=== PATIENT | female | born 1955 | race African-American/Black ===

== ENCOUNTER 2019-02-06 17:12 | Inpatient (IN) | payer OTHER ==
[2019-02-06 22:50] VITALS: BMI 38.3
--- NOTE | 2019-02-07 01:20 | HP ---
COWS - Scale Resting Pulse: 0= [place] 80 or Below Sweatin=Flushed/Facial Moisture Restless Observation: 1= Difficult to Sit Still Pupil Size: 2= Moderately Dilated (Pupils = 3 mm) Bone or Joint Aches: 1= Mild Discomfort Runny Nose/ Eye Tearin= Runny Nose/Eyes GI Upset > 30mins: 1= Stomach Cramp Tremor Observation: 2= Slight Tremor Visible Yawning Observation: 1= 1-2x During Session Anxiety or Irritability: 1=Feels Anxious/Irritable Goose Flesh Skin: 0=Smooth Skin COWS Score: 13 CIWA Score - Admission Criteria OASAS Guidelines: Admission for Medically Managed Detox: Requires at least one of the followin. CIWA greater than 12 2. Seizures within the past 24 hours 3. Delirium tremens within the past 24 hours 4. Hallucinations within the past 24 hours 5. Acute intervention needed for co occurring medical disorder 6. Acute intervention needed for co occurring psychiatric disorder 7. Severe withdrawal that cannot be handled at a lower level of care (continued vomiting, continued diarrhea, abnormal vital signs) requiring intravenous medication and/or fluids 8. Admission ROS [facility] Chief Complaint: Having heroin withdrawal Allergies/Adverse Reactions: Allergies Allergy/AdvReac Type Severity Reaction Status Date / Time No Known Allergies Allergy Verified 02/06/19 22:28 History of Present Illness: 63 yo presents w/ heroin withdrawal symptoms seeking detox. Utox:+ ABRAM/FEN/MOP/OXY/MTD SOLO: 0.0 Heroin use started at age 19. Alcohol use started at age 14. Cocaine use started at age 32. Nicotine use began at age 14. Smokes 1/2 PPD. Illicit methadone use approx 90 mg - last used 1/2 this am. Also used heroin this am prior to coming in to [facility]. Was on Suboxone from 2012 to 10/2018 - [facility] - [address] in [place]. Relapsed w/heroin in October 2018. Longest length of sobriety 18 years from age 33 to 51. Denies seizures. Hx 3 overdoses. Last 10 years ago. PMHx: Asthma, HTN, Osteoarthritis; LBP; MHHx: Depression. Anxiety. Insomnia. Last took Wellbutrin over a month ago. Has a MH Provider. Denies thoughts of harming self or others. SHx: Domiciled. Unemployed. (SSD); Denies legal issues Patient Name: Audra Kelly Date: 1955 Address: [address] [place] [address] Sex: Female Rx Written Rx Dispensed Drug Quantity Days Supply Prescriber Name 10/19/2018 10/19/2018 suboxone 8 mg-2 mg sl film 60 30 OsvaldoDarío lozano MD 09/19/2018 09/19/2018 suboxone 8 mg-2 mg sl film 60 30 Osvaldo, Darío SULLIVAN 08/22/2018 08/22/2018 suboxone 8 mg-2 mg sl film 60 30 Osvaldo, Darío SULLIVAN 07/25/2018 07/25/2018 suboxone 8 mg-2 mg sl film 60 30 [facility], Darío SULLIVAN 06/26/2018 06/26/2018 suboxone 4 mg-1 mg sl film 30 30 [facility], Darío SULLIVAN 06/26/2018 06/26/2018 suboxone 8 mg-2 mg sl film 60 30 [facility], Darío SULLIVAN 05/25/2018 05/25/2018 suboxone 8 mg-2 mg sl film 90 30 Osvaldo, Darío SULLIVAN 04/27/2018 04/27/2018 suboxone 8 mg-2 mg sl film 90 90 OsvaldoDarío velasquez MD 03/21/2018 03/21/2018 suboxone 8 mg-2 mg sl film 90 30 Darío Riley MD Patient Name: Audra Kelly Date: 1955 Address: [address] [place] [address] Sex: Female Rx Written Rx Dispensed Drug Quantity Days Supply Prescriber Name 02/19/2018 02/19/2018 suboxone 8 mg-2 mg sl film 90 30 Darío Riley MD Exam Limitations: No Limitations - Ebola screening Have you traveled outside of the country in the last 21 days: No (N) Have you had contact with anyone from an Ebola affected area: No Have you been sick,other than usual withdrawal symptoms: No Do you have a fever: No - Review of Systems Constitutional: Chills, Diaphoresis, Changes in sleep (Difficulty staying asleep ) EENT: reports: Blurred Vision, Hearing Loss (Decreased hearing (L) ear), Nose Congestion Respiratory: reports: Cough, SOB with Exertion (Walking) Cardiac: reports: No Symptoms Reported GI: reports: Abdominal cramping : reports: No Symptoms Reported Musculoskeletal: reports: Back Pain (Chronic avery back back burning/throbbing pain), Joint Pain (Both knees w/ throbbing pain increases w/ walking. Has a walker. States electric wheelchair at home.) Integumentary: reports: No Symptoms Reported Neuro: reports: Numbness (Fingers both hands. Sometimes in feet.), Tremors, Unsteady Gait Endocrine: reports: Increased Thirst Hematology: reports: No Symptoms Reported Psychiatric: reports: Judgement Intact, Orientated x3, Agitated, Anxious, Depressed (Denies thoughts of harming self or others.) Patient History - PPD History Previous Implant?: Yes Documented Results: Positive w/o proof (States rx'd w/ [facility] in 1990) Implanted On Prior R Admission?: No PPD to be Administered?: No - Smoking Cessation Smoking history: Current every day smoker Have you smoked in the past 12 months: Yes Aproximately how many cigarettes per day: 10 Hx Chewing Tobacco Use: No Initiated information on smoking cessation: Yes 'Breaking Loose' booklet given: 02/07/19 - Substance & Tx. History Hx Alcohol Use: Yes (Small amounts) Hx Substance Use: Yes Substance Use Type: Cocaine, Heroin, Opiates Hx Substance Use Treatment: Yes (detox, rehab, past OTP-received Suboxone) - Substances abused Heroin Substance route: Inhalation Frequency: Daily Amount used: 4 to 6 bags Age of first use: 19 Date of last use: 02/06/19 Cocaine Substance route: Inhalation Frequency: 3-6 times per week Amount used: 20 to 40 dollars Age of first use: 32 Date of last use: 02/05/19 Alcohol Substance route: Oral Frequency: 1-3 times last 30 days Amount used: 12 ounce of beer, little glass of wine Age of first use: 14 Date of last use: 02/05/19 Admission Physical Exam BHS - Vital Signs Vital Signs: Vital Signs - 24 hr 02/06/19 22:26 Temperature 97.2 F L Pulse Rate 71 Respiratory 16 Rate Blood Pressure 150/97 - Physical General Appearance: Yes: Nourished, Mild Distress, Obese, Tremorous, Sweating ( Increased facial moisture), Anxious HEENTM: Yes: EOMI, Hearing grossly Normal, Normocephalic, Normal Voice, FELY ( Pupils = 3 mm), Pharynx Normal Respiratory: Yes: Lungs Clear (Pulse Ox 98 %), Normal Breath Sounds, No Respiratory Distress Neck: Yes: No masses,lesions,Nodules, Supple Breast: Yes: Breast Exam Deferred Cardiology: Yes: Regular Rhythm, Regular Rate, S1, S2 Abdominal: Yes: Non Tender, Soft, Increased Bowel Sounds, Protuberent ( Increased abdominal adiposity) Genitourinary: Yes: Within Normal Limits Back: Yes: Normal Inspection Musculoskeletal: Yes: full range of Motion Extremities: Yes: Normal Capillary Refill, Tremors, Pedal Edema (Both feet and hands. Radial and pedal pulses +; Cap refill < 3 sec) Neurological: Yes: computer numerical control programmer II-XII NML intact, Fully Oriented, Alert, Motor Strength 5/5, Normal Mood/Affect Integumentary: Yes: Normal Color, Warm, Diaphoresis (Increased facial moisture) Lymphatic: Yes: Within Normal Limits - Diagnostic (1) Opioid dependence with withdrawal Current Visit: Yes Status: Acute (2) Nicotine dependence, unspecified, uncomplicated Current Visit: Yes Status: Chronic Qualifiers: Nicotine product type: cigarettes Qualified Code(s): F17.210 - Nicotine dependence, cigarettes, uncomplicated (3) History of asthma Current Visit: Yes Status: Acute (4) History of osteoarthritis Current Visit: Yes Status: Chronic (5) History of low back pain Current Visit: Yes Status: Chronic (6) Cocaine dependence, uncomplicated Current Visit: Yes Status: Chronic (7) Obesity (BMI 30-39.9) Current Visit: Yes Status: Acute (8) History of positive PPD Current Visit: Yes Status: Chronic (9) Essential (primary) hypertension Current Visit: Yes Status: Chronic Cleared for Admission [facility] - Detox or Rehab [facility] Level of Care: Medically Managed Detox Regimen/Protocol: Methadone Claeared for Rehab Admission: No Breathalyzer - Breathalyzer Breathalyzer: 0 Urine Drug Screen - Test Device Lot number: [id number] Expiration date: 10/05/20 - Control Is test valid?: Yes - Results Drug screen NEGATIVE: No Urine drug screen results: ABRAM-Cocaine, FEN-Fentanyl, MOP-Opiates, OXY-Oxycodone , MTD-Methadone Inpatient Rehab Admission - Rehab Decision to Admit Inpatient rehab admission?: No
[2019-02-07] MEDS ORDERED: MENTHOL/PHENOL 1 EACH UD MM PRN (02:16)
[2019-02-07] MEDS ORDERED: BISMUTH SUBSALICYLATE 524 MG/30 ML UD PO PRN (02:16)
[2019-02-07] MEDS ORDERED: MAG HYDROX/AL HYDROX/SIMETH 30 ML UNIT-DOSE CUP PO PRN (02:16)
[2019-02-07] MEDS ORDERED: cloNIDine HCL 0.1 MG TABLET PO PRN (02:16)
[2019-02-07] MEDS ORDERED: MELATONIN 5 MG TABLETS PO PRN (02:16)
[2019-02-07] MEDS ORDERED: MAGNESIUM CITRATE 300 ML BOTTLE PO PRN (02:16)
[2019-02-07] MEDS ORDERED: hydrOXYzine PAMOATE 25 MG CAPSULE (FP) PO PRN (02:16)
[2019-02-07] MEDS ORDERED: ACETAMINOPHEN 325 MG TABLET (FP) PO PRN ×2 (02:16)
[2019-02-07] MEDS ORDERED: MAGNESIUM HYDROX 2400MG/30ML ORAL SUSPENSION 30 ML CUP PO PRN (02:16)
[2019-02-07] MEDS ORDERED: METHADONE HCL 10 MG TABLET PO ONE ×2 (02:21→10:00)
[2019-02-07] MEDS: clonazePAM 0.5 MG TABLET PO PRN ×3 (03:53→19:56)
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
[2019-02-07] MEDS: PRENATAL VITAMINS W/ FOLIC ACID TABLET (FP) PO SCH (10:21)
[2019-02-07] MEDS: HYDROCHLOROTHIAZIDE 25 MG TABLET (FP) PO SCH (10:21)
[2019-02-07] MEDS: amLODIPine BESYLATE 10 MG TABLET (FP) PO SCH (10:21)
[2019-02-07] MEDS ORDERED: METHADONE HCL 5 MG TABLET ONE (10:46)
[2019-02-07] MEDS: NICOTINE 14 MG/24 HOURS TOPICAL PATCH TD SCH (11:00)
[2019-02-07] MEDS: buPROPion HCL 75 MG TABLET PO SCH (12:00)
--- NOTE | 2019-02-07 13:11 | PN ---
BHS COWS - Scale Resting Pulse: 0= [place] 80 or Below Sweatin= Chills/Flushing Restless Observation: 1= Difficult to Sit Still Pupil Size: 0= Normal to Room Light Bone or Joint Aches: 2= Severe Diffuse Aches Runny Nose/ Eye Tearin= Runny Nose/Eyes GI Upset > 30mins: 2= Nausea/Diarrhea Tremor Observation of Outstretched Hands: 1= Tremor [place], Not Seen Yawning Observation: 1= 1-2x During Session Anxiety or Irritability: 2=Irritable/Anxious Goose Flesh Skin: 0=Smooth Skin COWS Score: 12 S Progress Note (SOAP) Subjective: c/o of generalized body aches, back pian, interrupted sleep,, chills, sweats Objective: 02/07/19 13:08 Vital Signs Temperature 98.2 F 02/07/19 09:32 Pulse Rate 73 02/07/19 09:32 Respiratory Rate 20 02/07/19 09:32 Blood Pressure 155/94 02/07/19 09:32 O2 Sat by Pulse Oximetry (%) labs pending Assessment: 02/07/19 13:09 Aox3 no acute distress no adventitious breath sounds full ROM ambulating in the unit with rollator withdrawal sx Plan: increase po fluids labs pending continue detox
--- NOTE | 2019-02-07 14:36 | EKG ---
Test Reason : Blood Pressure : / mmHG Vent. Rate : 076 BPM Atrial Rate : 076 BPM P-R Int : 202 ms QRS Dur : 100 ms QT Int : 396 ms P-R-T Axes : -88 029 054 degrees QTc Int : 445 ms UNUSUAL P AXIS, POSSIBLE ECTOPIC ATRIAL RHYTHM NONSPECIFIC T WAVE ABNORMALITY ABNORMAL ECG WHEN COMPARED WITH ECG OF 24-APR-2009 16:19, ECTOPIC ATRIAL RHYTHM HAS REPLACED SINUS RHYTHM NONSPECIFIC T WAVE ABNORMALITY NOW EVIDENT IN INFERIOR LEADS Confirmed by YOLANDA MORAES MD ([id number]) on 02/07/2019 2:36:15 PM Referred By: Confirmed By:YOLANDA MORAES MD
[2019-02-07] MEDS: NICOTINE POLACRILEX 2 MG GUM BUC PRN (14:51)
[2019-02-07] MEDS: THIAMINE HCL 100 MG TABLET (FP) PO SCH (23:53)
[2019-02-08] MEDS ORDERED: METHADONE (DETOX) 20 MG, METHADONE (DETOX) 5 MG PO ONE (06:00)
[2019-02-08] MEDS: clonazePAM 0.5 MG TABLET PO PRN ×2 (06:11→19:45)
[2019-02-08] MEDS ORDERED: METHADONE HCL 10 MG TABLET (FOR DETOX USE ONLY) ONE (06:11)
[2019-02-08] MEDS ORDERED: METHADONE HCL 5 MG TABLET (FOR DETOX USE ONLY) ONE (06:12)
[2019-02-08] MEDS: buPROPion HCL 75 MG TABLET PO SCH (10:23)
[2019-02-08] MEDS: PRENATAL VITAMINS W/ FOLIC ACID TABLET (FP) PO SCH (10:23)
[2019-02-08] MEDS: amLODIPine BESYLATE 10 MG TABLET (FP) PO SCH (10:23)
[2019-02-08] MEDS: HYDROCHLOROTHIAZIDE 25 MG TABLET (FP) PO SCH (10:23)
[2019-02-08] MEDS: NICOTINE 14 MG/24 HOURS TOPICAL PATCH TD SCH (10:24)
[2019-02-08] MEDS: NICOTINE POLACRILEX 2 MG GUM BUC PRN (10:27)
[2019-02-08] MEDS: LIDOCAINE 5% TOPICAL PATCH TP SCH (10:38)
--- NOTE | 2019-02-08 13:47 | PN ---
BHS COWS - Scale Resting Pulse: 1= [place] 81-100 Sweatin= Chills/Flushing Restless Observation: 0= Sits Still Pupil Size: 0= Normal to Room Light Bone or Joint Aches: 2= Severe Diffuse Aches Runny Nose/ Eye Tearin= None GI Upset > 30mins: 1= Stomach Cramp Tremor Observation of Outstretched Hands: 0= None Yawning Observation: 0= None Anxiety or Irritability: 2=Irritable/Anxious Goose Flesh Skin: 0=Smooth Skin COWS Score: 7 BHS Progress Note (SOAP) Subjective: Patient states feeling better from yesterday. Still c/o mild abdominal cramps, nausea, body aches, anxiety and interrupted sleep. 02/08/19 13:43 Objective: Vital Signs Temperature 97.8 F 02/08/19 13:04 Pulse Rate 100 H 02/08/19 13:04 Respiratory Rate 18 02/08/19 13:04 Blood Pressure 124/72 02/08/19 13:04 O2 Sat by Pulse Oximetry (%) Laboratory Tests 02/08/19 02/08/19 08:00 08:00 Corrected WBC (auto) Taker Down MCV Taker Down MCH Taker Down MCHC Taker Down RDW Taker Down MPV Taker Down Manual Slide Review Taker Down Platelet Comment Taker Down RPR Titer Nonreactive PE alert and oriented x 3 skin warm and dry neck neg for jvd + ls spine tenderness ext no visible tremors +walker mildly anxious Assessment: 02/08/19 13:47 opiod withdrawal symptoms Plan: continue detox add lidocaine patch encourage fluids cbc clotted repeat in am monitor clinically
[2019-02-08] MEDS: LIDOCAINE PATCH REMOVAL MC SCH (22:30)
[2019-02-08] MEDS: THIAMINE HCL 100 MG TABLET (FP) PO SCH (22:30)
[2019-02-09] MEDS: clonazePAM 0.5 MG TABLET PO PRN ×2 (05:32→17:31)
[2019-02-09] MEDS ORDERED: METHADONE HCL 10 MG TABLET (FOR DETOX USE ONLY) PO ONE (06:00)
[2019-02-09] MEDS: amLODIPine BESYLATE 10 MG TABLET (FP) PO SCH (10:16)
[2019-02-09] MEDS: HYDROCHLOROTHIAZIDE 25 MG TABLET (FP) PO SCH (10:16)
[2019-02-09] MEDS: PRENATAL VITAMINS W/ FOLIC ACID TABLET (FP) PO SCH (10:16)
[2019-02-09] MEDS: buPROPion HCL 75 MG TABLET PO SCH (10:16)
[2019-02-09] MEDS: NICOTINE 14 MG/24 HOURS TOPICAL PATCH TD SCH (10:17)
[2019-02-09] MEDS: LIDOCAINE 5% TOPICAL PATCH TP SCH (10:18)
[2019-02-09] MEDS: NICOTINE POLACRILEX 2 MG GUM BUC PRN (10:18)
[2019-02-09] MEDS: METHOCARBAMOL 500 MG TABLET PO PRN ×2 (10:21→17:31)
[2019-02-09] MEDS: IBUPROFEN 400 MG TABLET (FP) PO PRN ×2 (10:21→17:31)
[2019-02-09 11:32] LABS: ALBUMIN 3.5 g/dl (3.4-5.0); BILIRUBIN,TOTAL 0.5 mg/dL (0.2-1); BLOOD UREA NITROGEN 12.5 mg/dL (7-18); CALCIUM 8.9 mg/dL (8.5-10.1); CREATININE 0.8 mg/dL (0.55-1.3); POTASSIUM 4.7 mmol/L (3.5-5.1); TOT PROT 6.9 g/dl (6.4-8.2)
--- NOTE | 2019-02-09 12:13 | PN ---
BHS COWS - Scale Resting Pulse: 1= [place] 81-100 Sweatin= Chills/Flushing Restless Observation: 1= Difficult to Sit Still Pupil Size: 0= Normal to Room Light Bone or Joint Aches: 1= Mild Discomfort Runny Nose/ Eye Tearin= None GI Upset > 30mins: 0= None Tremor Observation of Outstretched Hands: 0= None Yawning Observation: 1= 1-2x During Session Anxiety or Irritability: 2=Irritable/Anxious Goose Flesh Skin: 0=Smooth Skin COWS Score: 7 BHS Progress Note (SOAP) Subjective: c/o anxiety, irritability, headache, sweats, and lower back pain. Objective: 02/09/19 12:10 Vital Signs 02/09/19 02/09/19 06:00 09:35 Temperature 97.7 F 98.4 F Pulse Rate 72 113 H Respiratory 18 18 Rate Blood Pressure 129/68 155/98 Lab Results WBC Cancelled 02/08/19 08:00 RBC Cancelled 02/08/19 08:00 Hgb Cancelled 02/08/19 08:00 Hct Cancelled 02/08/19 08:00 MCV Manager Medical Affairs 02/08/19 08:00 MCHC Manager Medical Affairs 02/08/19 08:00 RDW Manager Medical Affairs 02/08/19 08:00 Plt Count Cancelled 02/08/19 08:00 Sodium 139 mmol/L (136-145) 02/09/19 08:10 Potassium 4.7 mmol/L (3.5-5.1) 02/09/19 08:10 Chloride 103 mmol/L (98-107) 02/09/19 08:10 Carbon Dioxide 30 mmol/L (21-32) 02/09/19 08:10 Anion Gap 6 MMOL/L (8-16) L 02/09/19 08:10 BUN 12.5 mg/dL (7-18) 02/09/19 08:10 Creatinine 0.8 mg/dL (0.55-1.3) 02/09/19 08:10 Random Glucose 83 mg/dL (74-106) 02/09/19 08:10 Calcium 8.9 mg/dL (8.5-10.1) 02/09/19 08:10 Labs noted. Assessment: 02/09/19 12:11 AOX3, in no acute respiratory distress. Full ROM, ambulating in the unit with a rolling walker. Withdrawal symptoms. c/o lower back pain. Plan: continue detox. continue with lidoderm patch.
[2019-02-09 13:47] LABS: BASO % 0.8 % (0-2.0); EOS % 5.8 % (0-4.5); HEMATOCRIT 39.4 % (32.4-45.2); HEMOGLOBIN 12.9 GM/dL (10.7-15.3); LYMPH % 27.2 % (8-40); MCHC 32.8 g/dl (32.0-36.0); MEAN CELL VOLUME 79.3 fl (80-96); MEAN PLT VOLUME 9.2 fl (7.5-11.1); MONO % 8.5 % (3.8-10.2); NEUT % 57.7 % (42.8-82.8); PLATELET COUNT 289 K/MM3 (134-434); RBC 4.98 M/mm3 (3.60-5.2); RDW 16.2 % (11.6-15.6); WHITE BLOOD COUNT 4.9 K/mm3 (4.0-10.0)
[2019-02-09] MEDS: LIDOCAINE PATCH REMOVAL MC SCH (22:38)
[2019-02-09] MEDS: THIAMINE HCL 100 MG TABLET (FP) PO SCH (22:38)
[2019-02-10] MEDS ORDERED: METHADONE HCL 10 MG TABLET (FOR DETOX USE ONLY) ONE (05:06)
[2019-02-10] MEDS ORDERED: METHADONE HCL 5 MG TABLET (FOR DETOX USE ONLY) ONE (05:06)
[2019-02-10] MEDS: METHOCARBAMOL 500 MG TABLET PO PRN ×2 (05:10→22:36)
[2019-02-10] MEDS: IBUPROFEN 400 MG TABLET (FP) PO PRN ×2 (05:10→22:37)
[2019-02-10] MEDS ORDERED: METHADONE (DETOX) 10 MG, METHADONE (DETOX) 5 MG PO ONE (06:00)
[2019-02-10] MEDS: PRENATAL VITAMINS W/ FOLIC ACID TABLET (FP) PO SCH (10:26)
[2019-02-10] MEDS: HYDROCHLOROTHIAZIDE 25 MG TABLET (FP) PO SCH (10:26)
[2019-02-10] MEDS: amLODIPine BESYLATE 10 MG TABLET (FP) PO SCH (10:26)
[2019-02-10] MEDS: buPROPion HCL 75 MG TABLET PO SCH (10:26)
[2019-02-10] MEDS: LIDOCAINE 5% TOPICAL PATCH TP SCH (10:27)
[2019-02-10] MEDS: NICOTINE 14 MG/24 HOURS TOPICAL PATCH TD SCH (10:27)
[2019-02-10] MEDS: clonazePAM 0.5 MG TABLET PO PRN ×2 (10:29→22:36)
[2019-02-10] MEDS: NICOTINE POLACRILEX 2 MG GUM BUC PRN (10:31)
--- NOTE | 2019-02-10 15:52 | PN ---
BHS COWS - Scale Resting Pulse: 1= [place] 81-100 Sweatin= Chills/Flushing Restless Observation: 0= Sits Still Pupil Size: 0= Normal to Room Light Bone or Joint Aches: 1= Mild Discomfort Runny Nose/ Eye Tearin= Nasal Congestion GI Upset > 30mins: 0= None Tremor Observation of Outstretched Hands: 2= Slight Tremor Visible Yawning Observation: 1= 1-2x During Session Anxiety or Irritability: 1=Feels Anxious/Irritable Goose Flesh Skin: 0=Smooth Skin COWS Score: 8 BHS Progress Note (SOAP) Subjective: nasal congestion sweats tremors Objective: 02/10/19 15:51 a & O x 3 ambulates on unit with walker in no acute distress Vital Signs Temperature 98.4 F 02/10/19 12:51 Pulse Rate 95 H 02/10/19 12:51 Respiratory Rate 20 02/10/19 12:51 Blood Pressure 128/60 02/10/19 12:51 O2 Sat by Pulse Oximetry (%) Assessment: 02/10/19 15:52 withdrawal sx Plan: continue detox per order
[2019-02-10] MEDS: LIDOCAINE PATCH REMOVAL MC SCH (22:36)
[2019-02-10] MEDS: THIAMINE HCL 100 MG TABLET (FP) PO SCH (22:37)
[2019-02-11] MEDS ORDERED: METHADONE HCL 10 MG TABLET (FOR DETOX USE ONLY) PO ONE (06:00)
[2019-02-11] MEDS: IBUPROFEN 400 MG TABLET (FP) PO PRN (06:00)
[2019-02-11] MEDS: METHOCARBAMOL 500 MG TABLET PO PRN (06:00)
[2019-02-11 09:07] VITALS: BP 147/78; PULSE 92; TEMP 97.5
--- NOTE | 2019-02-11 09:37 | DS ---
[facility] Detox Discharge Summary Admission Date: 02/07/19 Discharge Date: 02/11/19 - History Present History: Cannabis Dependence, Opioid Dependence - Physical Exam Results Vital Signs: Vital Signs Temperature 97.5 F L 02/11/19 09:07 Pulse Rate 92 H 02/11/19 09:07 Respiratory Rate 18 02/11/19 09:07 Blood Pressure 147/78 02/11/19 09:07 O2 Sat by Pulse Oximetry (%) Pertinent Admission Physical Exam Findings: pt arrived in withdrawals Laboratory Tests 02/08/19 02/08/19 02/09/19 08:00 08:00 08:10 WBC Corrected WBC (auto) Press Operator Apprentice RBC Hgb Hct MCV Press Operator Apprentice MCH Press Operator Apprentice MCHC Press Operator Apprentice RDW Press Operator Apprentice Plt Count MPV Press Operator Apprentice Absolute Neuts (auto) Neutrophils % Lymphocytes % Monocytes % Eosinophils % Basophils % Nucleated RBC % Manual Slide Review Press Operator Apprentice Platelet Comment Press Operator Apprentice Sodium 139 Potassium 4.7 Chloride 103 Carbon Dioxide 30 Anion Gap 6 L BUN 12.5 Creatinine 0.8 Est GFR (CKD-EPI)AfAm 90.94 Est GFR (CKD-EPI)NonAf 78.46 Random Glucose 83 Calcium 8.9 Total Bilirubin 0.5 AST 15 ALT 13 Alkaline Phosphatase 72 Total Protein 6.9 Albumin 3.5 RPR Titer Nonreactive 02/09/19 10:40 WBC 4.9 Corrected WBC (auto) RBC 4.98 Hgb 12.9 Hct 39.4 MCV 79.3 L MCH 26.0 MCHC 32.8 RDW 16.2 H Plt Count 289 MPV 9.2 Absolute Neuts (auto) 2.9 Neutrophils % 57.7 Lymphocytes % 27.2 Monocytes % 8.5 Eosinophils % 5.8 H Basophils % 0.8 Nucleated RBC % 0 Manual Slide Review Platelet Comment Sodium Potassium Chloride Carbon Dioxide Anion Gap BUN Creatinine Est GFR (CKD-EPI)AfAm Est GFR (CKD-EPI)NonAf Random Glucose Calcium Total Bilirubin AST ALT Alkaline Phosphatase Total Protein Albumin RPR Titer pt is aaoxe - Treatment Hospital Course: Detox Protocol Followed, Detoxed Safely, Responded well, Discharged Condition Good, Rehab Referral Accepted Patient has Accepted a Rehab Referral to: pt declined rehab; referral provided - Medication Discharge Medications: Ambulatory Orders Amlodipine Besylate [Norvasc -] 10 mg PO DAILY 02/06/19 Bupropion HCl [Wellbutrin -] 150 mg PO DAILY 02/06/19 Hydrochlorothiazide 50 mg PO DAILY 10/02/19 - Diagnosis (1) Cocaine dependence, uncomplicated Current Visit: Yes Status: Chronic (2) Obesity (BMI 30-39.9) Current Visit: Yes Status: Acute (3) Opioid dependence with withdrawal Current Visit: Yes Status: Chronic (4) Substance induced mood disorder Current Visit: Yes Status: Acute (5) Substance-induced sleep disorder Current Visit: Yes Status: Acute (6) Essential (primary) hypertension Current Visit: Yes Status: Chronic (7) History of asthma Current Visit: Yes Status: Chronic (8) History of low back pain Current Visit: Yes Status: Chronic (9) History of osteoarthritis Current Visit: Yes Status: Chronic (10) MDD (major depressive disorder) Current Visit: Yes Status: Chronic (11) Nicotine dependence, unspecified, uncomplicated Current Visit: Yes Status: Chronic Qualifiers: Nicotine product type: cigarettes Qualified Code(s): F17.210 - Nicotine dependence, cigarettes, uncomplicated (12) History of positive PPD Current Visit: Yes Status: Resolved - AMA Did Patient Leave Against Medical Advice: No
[2019-02-11] MEDS: PRENATAL VITAMINS W/ FOLIC ACID TABLET (FP) PO SCH (10:15)
[2019-02-11] MEDS: LIDOCAINE 5% TOPICAL PATCH TP SCH (10:15)
[2019-02-11] MEDS: NICOTINE 14 MG/24 HOURS TOPICAL PATCH TD SCH (10:15)
[2019-02-11] MEDS: buPROPion HCL 75 MG TABLET PO SCH (10:15)
[2019-02-11] MEDS: amLODIPine BESYLATE 10 MG TABLET (FP) PO SCH (10:15)
[2019-02-11] MEDS: HYDROCHLOROTHIAZIDE 25 MG TABLET (FP) PO SCH (10:15)
[2019-02-12] MEDS ORDERED: METHADONE HCL 5 MG TABLET (FOR DETOX USE ONLY) PO ONE (06:00)
== END 2019-02-11 10:35 | disposition home or self-care (01) | DRG 773 ==
LOC: YASAS 17:12 → Y6N 02-07 01:28
PROVIDERS: ADMIT Surgery; ATTEND Surgery
PROC: HZ2ZZZZ Detoxification Services for Substance Abuse Treatment (ICD-10-PCS; principal; 2019-02-07)
DX: F11.23 Opioid dependence with withdrawal (principal); F10.10 Alcohol abuse, uncomplicated; F14.20 Cocaine dependence, uncomplicated; F12.20 Cannabis dependence, uncomplicated; F17.210 Nicotine dependence, cigarettes, uncomplicated; F19.282 Other psychoactive substance dependence with psychoactive substance-induced sleep disorder; F19.24 Other psychoactive substance dependence with psychoactive substance-induced mood disorder; F32.9 Major depressive disorder, single episode, unspecified; F41.9 Anxiety disorder, unspecified; G47.00 Insomnia, unspecified; I10 Essential (primary) hypertension; M54.5 Low back pain; E66.9 Obesity, unspecified; Z68.38 Body mass index [BMI] 38.0-38.9, adult; Z99.89 Dependence on other enabling machines and devices; Z87.09 Personal history of other diseases of the respiratory system; Z87.39 Personal history of other diseases of the musculoskeletal system and connective tissue
CPT/HCPCS: 71046-TC-FY; 80053; 85025; 86593; 93005; 93010

== ENCOUNTER 2019-06-11 16:14 | Inpatient (IN) | payer OTHER ==
[2019-06-11 19:12] VITALS: BMI 38.0
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
[2019-06-11] MEDS ORDERED: MENTHOL/PHENOL 1 EACH UD MM PRN (21:29)
[2019-06-11] MEDS ORDERED: MAGNESIUM HYDROX 2400MG/30ML ORAL SUSPENSION 30 ML CUP PO PRN (21:29)
[2019-06-11] MEDS ORDERED: MAGNESIUM CITRATE 300 ML BOTTLE PO PRN (21:29)
[2019-06-11] MEDS ORDERED: guaiFENesin 200 MG/10 ML 10 ML UNIT-DOSE CUPS PO PRN (21:29)
[2019-06-11] MEDS ORDERED: BISMUTH SUBSALICYLATE 524 MG/30 ML UD PO PRN (21:29)
[2019-06-11] MEDS ORDERED: ONDANSETRON *ODT* 4 MG TABLET SL PRN (21:29)
[2019-06-11] MEDS ORDERED: DICYCLOMINE HCL 10 MG CAPSULE PO PRN (21:29)
[2019-06-11] MEDS ORDERED: NICOTINE POLACRILEX 2 MG GUM BUC PRN (21:29)
[2019-06-11] MEDS ORDERED: METHADONE HCL 10 MG TABLET (FOR DETOX USE ONLY) PO ONE ×2 (21:29→22:30)
[2019-06-11] MEDS ORDERED: MAG HYDROX/AL HYDROX/SIMETH 30 ML UNIT-DOSE CUP PO PRN (21:29)
[2019-06-11] MEDS ORDERED: P-EPHED 60MG/TRIPROLIDI 2.5MG TABLET PO PRN (21:29)
[2019-06-11] MEDS ORDERED: ACETAMINOPHEN 325 MG TABLET (FP) PO PRN ×2 (21:29)
[2019-06-11] MEDS: THIAMINE HCL 100 MG TABLET (FP) PO SCH (22:13)
[2019-06-11] MEDS: METHOCARBAMOL 500 MG TABLET PO PRN (22:13)
[2019-06-11] MEDS: MELATONIN 5 MG TABLETS PO PRN (22:13)
[2019-06-11] MEDS: cloNIDine HCL 0.1 MG TABLET PO PRN (22:13)
[2019-06-11] MEDS ORDERED: METHADONE HCL 5 MG TABLET (FOR DETOX USE ONLY) PO ONE (22:30)
[2019-06-12] MEDS ORDERED: METHADONE HCL 10 MG TABLET (FOR DETOX USE ONLY) ONE (09:33)
[2019-06-12] MEDS ORDERED: METHADONE HCL 5 MG TABLET (FOR DETOX USE ONLY) ONE (09:33)
[2019-06-12] MEDS ORDERED: METHADONE (DETOX) 20 MG, METHADONE (DETOX) 5 MG PO ONE (10:00)
[2019-06-12 10:02] LABS: HEMATOCRIT 36.6 % (32.4-45.2); HEMOGLOBIN 11.9 GM/dL (10.7-15.3); MCH 26.6 pg (25.7-33.7); MCHC 32.5 g/dl (32.0-36.0); PLATELET COUNT 195 K/MM3 (134-434); RBC 4.47 M/mm3 (3.60-5.2); RDW 17.1 % (11.6-15.6); WHITE BLOOD COUNT 3.8 K/mm3 (4.0-10.0)
[2019-06-12] MEDS: amLODIPine BESYLATE 10 MG TABLET (FP) PO SCH (10:10)
[2019-06-12] MEDS: HYDROCHLOROTHIAZIDE 25 MG TABLET (FP) PO SCH (10:10)
[2019-06-12] MEDS: NICOTINE 14 MG/24 HOURS TOPICAL PATCH TD SCH (10:10)
[2019-06-12] MEDS: PRENATAL VITAMINS W/ FOLIC ACID TABLET (FP) PO SCH (10:10)
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
[2019-06-12 10:29] LABS: ALBUMIN 3.3 g/dl (3.4-5.0); BILIRUBIN,TOTAL 0.4 mg/dL (0.2-1); BLOOD UREA NITROGEN 13.4 mg/dL (7-18); CALCIUM 8.6 mg/dL (8.5-10.1); CREATININE 0.7 mg/dL (0.55-1.3); POTASSIUM 3.9 mmol/L (3.5-5.1); TOT PROT 6.3 g/dl (6.4-8.2)
--- NOTE | 2019-06-12 11:41 | EKG ---
Test Reason : Blood Pressure : / mmHG Vent. Rate : 078 BPM Atrial Rate : 078 BPM P-R Int : 200 ms QRS Dur : 096 ms QT Int : 400 ms P-R-T Axes : 265 008 035 degrees QTc Int : 456 ms UNUSUAL P AXIS, POSSIBLE ECTOPIC ATRIAL RHYTHM NONSPECIFIC T WAVE ABNORMALITY ABNORMAL ECG WHEN COMPARED WITH ECG OF 07-FEB-2019 02:23, NO SIGNIFICANT CHANGE WAS FOUND Confirmed by Yassine Torres MD ([id number]) on 06/12/2019 11:40:57 AM Referred By: Confirmed By:Yassine Torres MD
--- NOTE | 2019-06-12 12:42 | PN ---
BHS COWS - Scale Resting Pulse: 0= [place] 80 or Below Sweatin= Chills/Flushing Restless Observation: 0= Sits Still Pupil Size: 1= Pupils >than Normal Bone or Joint Aches: 1= Mild Discomfort Runny Nose/ Eye Tearin= Nasal Congestion GI Upset > 30mins: 1= Stomach Cramp Tremor Observation of Outstretched Hands: 2= Slight Tremor Visible Yawning Observation: 0= None Anxiety or Irritability: 2=Irritable/Anxious Goose Flesh Skin: 3=Piloerection COWS Score: 12 BHS Progress Note (SOAP) Subjective: 63 years old female admitted on 06/11/19 for opiate withdrawal sx management treating with methadone detox regiment ambulating with walker steady gait ate breakfast tolerated food and fluid well requests to be seen by a psychiatrist that she prefers to resume psychotropic medication Mrs Kelly presents reality based behavior denies suicidal no homocidal ideation Objective: 06/12/19 12:41 Vital Signs Temperature 96.6 F L 06/12/19 08:50 Pulse Rate 74 06/12/19 08:50 Respiratory Rate 18 06/12/19 08:50 Blood Pressure 109/62 06/12/19 08:50 O2 Sat by Pulse Oximetry (%) Laboratory Last Values WBC 3.8 K/mm3 (4.0-10.0) L 06/12/19 06:00 RBC 4.47 M/mm3 (3.60-5.2) 06/12/19 06:00 Hgb 11.9 GM/dL (10.7-15.3) 06/12/19 06:00 Hct 36.6 % (32.4-45.2) 06/12/19 06:00 MCV 82.0 fl (80-96) 06/12/19 06:00 MCH 26.6 pg (25.7-33.7) 06/12/19 06:00 MCHC 32.5 g/dl (32.0-36.0) 06/12/19 06:00 RDW 17.1 % (11.6-15.6) H 06/12/19 06:00 Plt Count 195 K/MM3 (134-434) D 06/12/19 06:00 MPV 9.0 fl (7.5-11.1) 06/12/19 06:00 Sodium 140 mmol/L (136-145) 06/12/19 06:00 Potassium 3.9 mmol/L (3.5-5.1) 06/12/19 06:00 Chloride 107 mmol/L (98-107) 06/12/19 06:00 Carbon Dioxide 25 mmol/L (21-32) 06/12/19 06:00 Anion Gap 8 MMOL/L (8-16) 06/12/19 06:00 BUN 13.4 mg/dL (7-18) 06/12/19 06:00 Creatinine 0.7 mg/dL (0.55-1.3) 06/12/19 06:00 Est GFR (CKD-EPI)AfAm 106.87 06/12/19 06:00 Est GFR (CKD-EPI)NonAf 92.21 06/12/19 06:00 Random Glucose 86 mg/dL (74-106) 06/12/19 06:00 Calcium 8.6 mg/dL (8.5-10.1) 06/12/19 06:00 Total Bilirubin 0.4 mg/dL (0.2-1) 06/12/19 06:00 AST 13 U/L (15-37) L 06/12/19 06:00 ALT 13 U/L (13-61) 06/12/19 06:00 Alkaline Phosphatase 64 U/L (45-117) 06/12/19 06:00 Total Protein 6.3 g/dl (6.4-8.2) L 06/12/19 06:00 Albumin 3.3 g/dl (3.4-5.0) L 06/12/19 06:00 lab noted Assessment: 06/12/19 12:41 opiate withdrawal Plan: methadone regiment
[2019-06-12] MEDS: cloNIDine HCL 0.1 MG TABLET PO PRN (13:35)
[2019-06-12 18:39] LABS: URINE APPEARANCE CLEAR; URINE BILIRUBIN NEGATIVE (NEGATIVE); URINE COLOR YELLOW; URINE GLUCOSE (UA) NEGATIVE (NEGATIVE); URINE KETONE NEGATIVE (NEGATIVE); URINE LEUK ESTERASE NEGATIVE (NEGATIVE); URINE NITRITE NEGATIVE (NEGATIVE); URINE PROTEIN NEGATIVE (NEGATIVE)
[2019-06-12] MEDS: THIAMINE HCL 100 MG TABLET (FP) PO SCH (22:25)
[2019-06-12] MEDS: MELATONIN 5 MG TABLETS PO PRN (22:27)
[2019-06-13] MEDS: IBUPROFEN 400 MG TABLET (FP) PO PRN (04:42)
[2019-06-13] MEDS: METHOCARBAMOL 500 MG TABLET PO PRN ×2 (04:42→22:17)
[2019-06-13] MEDS: cloNIDine HCL 0.1 MG TABLET PO PRN ×3 (05:50→22:18)
[2019-06-13] MEDS ORDERED: METHADONE HCL 10 MG TABLET (FOR DETOX USE ONLY) PO ONE (10:00)
[2019-06-13] MEDS: amLODIPine BESYLATE 10 MG TABLET (FP) PO SCH (10:23)
[2019-06-13] MEDS: PRENATAL VITAMINS W/ FOLIC ACID TABLET (FP) PO SCH (10:23)
[2019-06-13] MEDS: HYDROCHLOROTHIAZIDE 25 MG TABLET (FP) PO SCH (10:24)
[2019-06-13] MEDS: NICOTINE 14 MG/24 HOURS TOPICAL PATCH TD SCH (10:24)
--- NOTE | 2019-06-13 13:54 | PN ---
BHS COWS - Scale Resting Pulse: 0= [place] 80 or Below Sweatin= Chills/Flushing Restless Observation: 0= Sits Still Pupil Size: 1= Pupils >than Normal Bone or Joint Aches: 2= Severe Diffuse Aches Runny Nose/ Eye Tearin= Nasal Congestion GI Upset > 30mins: 1= Stomach Cramp Tremor Observation of Outstretched Hands: 2= Slight Tremor Visible Yawning Observation: 1= 1-2x During Session Anxiety or Irritability: 1=Feels Anxious/Irritable Goose Flesh Skin: 0=Smooth Skin COWS Score: 10 [facility] Progress Note (SOAP) Subjective: 63 years old female admitted on 06/11/19 for opiate withdrawal sx management treating with methadone ambulating with walker steady gait encourage to attend behavior and psychosocial therapies groups and meetings Objective: 06/13/19 13:55 Vital Signs Temperature 98.1 F 06/13/19 09:15 Pulse Rate 79 06/13/19 09:15 Respiratory Rate 18 06/13/19 09:15 Blood Pressure 107/71 06/13/19 09:15 O2 Sat by Pulse Oximetry (%) Laboratory Last Values WBC 3.8 K/mm3 (4.0-10.0) L 06/12/19 06:00 RBC 4.47 M/mm3 (3.60-5.2) 06/12/19 06:00 Hgb 11.9 GM/dL (10.7-15.3) 06/12/19 06:00 Hct 36.6 % (32.4-45.2) 06/12/19 06:00 MCV 82.0 fl (80-96) 06/12/19 06:00 MCH 26.6 pg (25.7-33.7) 06/12/19 06:00 MCHC 32.5 g/dl (32.0-36.0) 06/12/19 06:00 RDW 17.1 % (11.6-15.6) H 06/12/19 06:00 Plt Count 195 K/MM3 (134-434) D 06/12/19 06:00 MPV 9.0 fl (7.5-11.1) 06/12/19 06:00 Sodium 140 mmol/L (136-145) 06/12/19 06:00 Potassium 3.9 mmol/L (3.5-5.1) 06/12/19 06:00 Chloride 107 mmol/L (98-107) 06/12/19 06:00 Carbon Dioxide 25 mmol/L (21-32) 06/12/19 06:00 Anion Gap 8 MMOL/L (8-16) 06/12/19 06:00 BUN 13.4 mg/dL (7-18) 06/12/19 06:00 Creatinine 0.7 mg/dL (0.55-1.3) 06/12/19 06:00 Est GFR (CKD-EPI)AfAm 106.87 06/12/19 06:00 Est GFR (CKD-EPI)NonAf 92.21 06/12/19 06:00 Random Glucose 86 mg/dL (74-106) 06/12/19 06:00 Calcium 8.6 mg/dL (8.5-10.1) 06/12/19 06:00 Total Bilirubin 0.4 mg/dL (0.2-1) 06/12/19 06:00 AST 13 U/L (15-37) L 06/12/19 06:00 ALT 13 U/L (13-61) 06/12/19 06:00 Alkaline Phosphatase 64 U/L (45-117) 06/12/19 06:00 Total Protein 6.3 g/dl (6.4-8.2) L 06/12/19 06:00 Albumin 3.3 g/dl (3.4-5.0) L 06/12/19 06:00 Urine Color Yellow 06/12/19 15:10 Urine Appearance Clear 06/12/19 15:10 Urine pH 6.0 (5.0-8.0) 06/12/19 15:10 Ur Specific [place] 1.018 (1.010-1.035) 06/12/19 15:10 Urine Protein Negative (NEGATIVE) 06/12/19 15:10 Urine Glucose (UA) Negative (NEGATIVE) 06/12/19 15:10 Urine Ketones Negative (NEGATIVE) 06/12/19 15:10 Urine Blood Negative (NEGATIVE) 06/12/19 15:10 Urine Nitrite Negative (NEGATIVE) 06/12/19 15:10 Urine Bilirubin Negative (NEGATIVE) 06/12/19 15:10 Urine Urobilinogen 1.0 mg/dL (0.2-1.0) 06/12/19 15:10 Ur Leukocyte Esterase Negative (NEGATIVE) 06/12/19 15:10 lab noted Assessment: 06/13/19 13:55 opiate withdrawal Plan: methadone regiment
[2019-06-13] MEDS: THIAMINE HCL 100 MG TABLET (FP) PO SCH (22:16)
[2019-06-13] MEDS: MELATONIN 5 MG TABLETS PO PRN (22:18)
[2019-06-14] MEDS ORDERED: METHADONE HCL 10 MG TABLET (FOR DETOX USE ONLY) ONE (09:50)
[2019-06-14] MEDS ORDERED: METHADONE HCL 5 MG TABLET (FOR DETOX USE ONLY) ONE (09:50)
[2019-06-14] MEDS: PRENATAL VITAMINS W/ FOLIC ACID TABLET (FP) PO SCH (09:59)
[2019-06-14] MEDS: amLODIPine BESYLATE 10 MG TABLET (FP) PO SCH (09:59)
[2019-06-14] MEDS: NICOTINE 14 MG/24 HOURS TOPICAL PATCH TD SCH (10:00)
[2019-06-14] MEDS: METHOCARBAMOL 500 MG TABLET PO PRN (10:00)
[2019-06-14] MEDS: HYDROCHLOROTHIAZIDE 25 MG TABLET (FP) PO SCH (10:00)
[2019-06-14] MEDS ORDERED: METHADONE (DETOX) 10 MG, METHADONE (DETOX) 5 MG PO ONE (10:00)
--- NOTE | 2019-06-14 12:54 | PN ---
BHS COWS - Scale Resting Pulse: 0= [place] 80 or Below Sweatin= No chills or Flushing Restless Observation: 1= Difficult to Sit Still Pupil Size: 1= Pupils >than Normal Bone or Joint Aches: 1= Mild Discomfort Runny Nose/ Eye Tearin= Nasal Congestion GI Upset > 30mins: 1= Stomach Cramp Tremor Observation of Outstretched Hands: 1= Tremor [place], Not Seen Yawning Observation: 1= 1-2x During Session Anxiety or Irritability: 2=Irritable/Anxious Goose Flesh Skin: 0=Smooth Skin COWS Score: 9 BHS Progress Note (SOAP) Subjective: alert,irritable,anxious,interrupted sleep,pain in the body Objective: 06/14/19 12:51 Vital Signs Temperature 97.0 F L 06/14/19 08:58 Pulse Rate 63 06/14/19 08:58 Respiratory Rate 18 06/14/19 08:58 Blood Pressure 94/60 06/14/19 08:58 O2 Sat by Pulse Oximetry (%) Assessment: 06/14/19 12:52 withdrawal symptom Plan: continue detox methadone regimen,psychiatrist evaluation for medication for anxiety and depression
--- NOTE | 2019-06-14 13:16 | PN ---
Psychiatric Progress Note Vital Signs: Vital Signs Period Temp Pulse Resp BP Sys/Santos Pulse Ox Last 24 Hr 97.0 F-97.9 F 52-63 18-18 94-131/60-73 Date of Session: 06/14/19 Chief Complaint:: " I need to get back on my trazodone." HPI: Day 3 of detoxification treatment. Patient reports doing fine. Ms Kelly states that she requested to see the psychiatrist to get order for trazodone at bedtime. Complains of chronic insomnia. This is the reason for request for this psychiatric follow-up. Hospital course remains unremarkable. ROS: Patient is visible on the unit. Observed moving around using a rolling walker. Alert, fully oriented and cooperative. Cognitively intact. Current Medications: Active Medications Generic Name Dose Route Start Last Admin Trade Name Freq PRN Reason Stop Dose Admin Acetaminophen 650 mg 06/11/19 21:29 Tylenol - PO Q6H PRN PAIN LEVEL 4 - 6 Acetaminophen 650 mg 06/11/19 21:29 Tylenol - PO Q6H PRN FEVER Al Hydroxide/Mg Hydroxide 30 ml 06/11/19 21:29 Mylanta Oral Suspension - PO Q6H PRN DYSPEPSIA Amlodipine Besylate 10 mg 06/12/19 10:00 06/14/19 09:59 Norvasc - PO 10 mg DAILY SANDRA Administration Bismuth Subsalicylate 524 mg 06/11/19 21:29 Pepto-Bismol - PO Q1H PRN DIARRHEA Bupropion HCl 150 mg 06/13/19 10:00 06/14/19 09:59 Wellbutrin Xl - PO 150 mg DAILY SANDRA Administration Dicyclomine HCl 10 mg 06/11/19 21:29 Bentyl - PO 06/17/19 21:31 Q6H PRN Abdominal Cramping Eucalyptus/Menthol/Phenol/Sorbitol 1 each 06/11/19 21:29 Cepastat Lozenge - MM 06/17/19 21:30 Q4H PRN SORE THROAT Guaifenesin 10 ml 06/11/19 21:29 Robitussin - PO Q6H PRN COUGH Hydrochlorothiazide 50 mg 06/12/19 10:00 06/14/19 10:00 Hctz - PO 50 mg DAILY SANDRA Administration Ibuprofen 400 mg 06/11/19 21:29 06/13/19 04:42 Motrin - PO 400 mg Q6H PRN Administration PAIN LEVEL 1 - 3 Magnesium Citrate 300 ml 06/11/19 21:29 Citroma - PO Q48H PRN CONSTIPATION Magnesium Hydroxide 30 ml 06/11/19 21:29 Milk Of Magnesia - PO PRN PRN CONSTIPATION Melatonin 5 mg 06/11/19 21:29 06/13/19 22:18 Melatonin PO 5 mg HS PRN Administration INSOMNIA Methadone HCl 5 mg 06/16/19 06:00 Dolophine - PO 06/16/19 06:01 ONCE@0600 ONE Methadone HCl 10 mg 06/15/19 10:00 Dolophine - PO 06/15/19 10:01 ONCE ONE Methocarbamol 500 mg 06/11/19 21:29 06/14/19 10:00 Robaxin - PO 06/17/19 21:30 500 mg Q6H PRN Administration MUSCLE SPASMS Nicotine 14 mg 06/12/19 10:00 06/14/19 10:00 Nicoderm Patch - TD Not Given DAILY SANDRA Nicotine Polacrilex 2 mg 06/11/19 21:29 Nicorette Gum - BUC Q2H PRN NICOTINE REPLACEMENT RX Ondansetron HCl 4 mg 06/11/19 21:29 Zofran Odt - SL 06/17/19 21:31 Q12H PRN Nausea/Vomiting Multivit/Folic Acid/Iron 1 tab 06/12/19 10:00 06/14/19 09:59 Vitamins ([facility]) - PO 1 tab DAILY SANDRA Administration Pseudoephedrine/Triprolidine 1 combo 06/11/19 21:29 Actifed - PO 06/17/19 21:31 Q6H PRN NASAL CONGESTION Thiamine HCl 100 mg 06/11/19 22:00 06/13/19 22:16 Vitamin B1 - PO 100 mg HS SANDRA Administration Medication(s) Change(s): Trazodone 50 mg po hs. Added to the regimen. Patient states that she used to be on 150 mg/hs. Date of last intake : not recalled by the patient. Titration to follow if current dose ineffective. Side effects/ benefits discussed with the patient. She agrees with this plan of care. Current Side Effect: No Lab tests ordered: No Lab tests reviewed: Yes Provider note:: Chart reviewed. Nursing notes revisited. Patient interviewed : pleasant on approach, calm, wel-related and adherent to her treatment plan. Detoxification ongoing. Well tolerated. Benign mental status. Ms Kelly remains coperative, well-mannered, neatly groomed, active and sociable on th unit. Doing well. No evidence of psychosis or justus. Euthymic mood with bright affect. No suicidal or homicidal ideation, intent or plan. STABLE mental status. See MSE report for details. Patient is clear : " I wanted to see the psychiatrist to get my trazodone ordered for insomnia." Issue resolved. Mental Status Exam - Mental Status Exam Alert and Oriented to: Time, Place, Person Cognitive Function: Good Patient Appearance: Well Groomed Mood: Hopeful, Euthymic Affect: Appropriate, Normal Range Patient Behavior: Appropriate, Cooperative Speech Pattern: Clear, Appropriate Voice Loudness: Normal Thought Process: Intact, Goal Oriented Thought Disorder: Not Present Hallucinations: Denies Suicidal Ideation: Denies Homicidal Ideation: Denies Insight/Judgement: Fair Sleep: Poorly, Difficulty falling asleep Appetite: Good Gait/Station: Other (uses rolling walker for ambulation) Psychiatric Treatment Plan - Problem List (1) Opioid dependence with withdrawal Current Visit: Yes Comment: . (2) Cocaine dependence, uncomplicated Current Visit: Yes Comment: . (3) Nicotine dependence, unspecified, uncomplicated Current Visit: Yes Qualifiers: Nicotine product type: cigarettes Qualified Code(s): F17.210 - Nicotine dependence, cigarettes, uncomplicated Comment: . (4) Substance induced mood disorder Current Visit: Yes Comment: . (5) History of depression Current Visit: Yes Comment: .
[2019-06-14] MEDS: IBUPROFEN 400 MG TABLET (FP) PO PRN (22:25)
[2019-06-14] MEDS: THIAMINE HCL 100 MG TABLET (FP) PO SCH (22:26)
[2019-06-14] MEDS: traZODone HCL 50 MG TABLET (FP) PO SCH (22:26)
[2019-06-15] MEDS ORDERED: METHADONE HCL 10 MG TABLET (FOR DETOX USE ONLY) PO ONE (10:00)
[2019-06-15] MEDS: amLODIPine BESYLATE 10 MG TABLET (FP) PO SCH (10:10)
[2019-06-15] MEDS: PRENATAL VITAMINS W/ FOLIC ACID TABLET (FP) PO SCH (10:10)
[2019-06-15] MEDS: HYDROCHLOROTHIAZIDE 25 MG TABLET (FP) PO SCH (10:10)
[2019-06-15] MEDS: NICOTINE 14 MG/24 HOURS TOPICAL PATCH TD SCH (10:43)
--- NOTE | 2019-06-15 13:59 | PN ---
[facility]HS COWS - Scale Resting Pulse: 0= NM 80 or Below Sweatin= No chills or Flushing Restless Observation: 0= Sits Still Pupil Size: 0= Normal to Room Light Bone or Joint Aches: 1= Mild Discomfort Runny Nose/ Eye Tearin= None GI Upset > 30mins: 0= None Tremor Observation of Outstretched Hands: 0= None Yawning Observation: 0= None Anxiety or Irritability: 2=Irritable/Anxious Goose Flesh Skin: 0=Smooth Skin COWS Score: 3 BHS Progress Note (SOAP) Subjective: c/o mild withdrawal symptoms. Objective: 06/15/19 13:58 Vital Signs 06/15/19 06/15/19 06/15/19 06:47 08:34 12:46 Temperature 97.9 F 97.8 F 97.1 F L Pulse Rate 66 80 87 Respiratory 18 18 18 Rate Blood Pressure 106/64 105/76 117/74 Laboratory Last Values WBC 3.8 K/mm3 (4.0-10.0) L 06/12/19 06:00 RBC 4.47 M/mm3 (3.60-5.2) 06/12/19 06:00 Hgb 11.9 GM/dL (10.7-15.3) 06/12/19 06:00 Hct 36.6 % (32.4-45.2) 06/12/19 06:00 MCV 82.0 fl (80-96) 06/12/19 06:00 MCH 26.6 pg (25.7-33.7) 06/12/19 06:00 MCHC 32.5 g/dl (32.0-36.0) 06/12/19 06:00 RDW 17.1 % (11.6-15.6) H 06/12/19 06:00 Plt Count 195 K/MM3 (134-434) D 06/12/19 06:00 MPV 9.0 fl (7.5-11.1) 06/12/19 06:00 Sodium 140 mmol/L (136-145) 06/12/19 06:00 Potassium 3.9 mmol/L (3.5-5.1) 06/12/19 06:00 Chloride 107 mmol/L (98-107) 06/12/19 06:00 Carbon Dioxide 25 mmol/L (21-32) 06/12/19 06:00 Anion Gap 8 MMOL/L (8-16) 06/12/19 06:00 BUN 13.4 mg/dL (7-18) 06/12/19 06:00 Creatinine 0.7 mg/dL (0.55-1.3) 06/12/19 06:00 Est GFR (CKD-EPI)AfAm 106.87 06/12/19 06:00 Est GFR (CKD-EPI)NonAf 92.21 06/12/19 06:00 Random Glucose 86 mg/dL (74-106) 06/12/19 06:00 Calcium 8.6 mg/dL (8.5-10.1) 06/12/19 06:00 Total Bilirubin 0.4 mg/dL (0.2-1) 06/12/19 06:00 AST 13 U/L (15-37) L 06/12/19 06:00 ALT 13 U/L (13-61) 06/12/19 06:00 Alkaline Phosphatase 64 U/L (45-117) 06/12/19 06:00 Total Protein 6.3 g/dl (6.4-8.2) L 06/12/19 06:00 Albumin 3.3 g/dl (3.4-5.0) L 06/12/19 06:00 Urine Color Yellow 06/12/19 15:10 Urine Appearance Clear 06/12/19 15:10 Urine pH 6.0 (5.0-8.0) 06/12/19 15:10 Ur Specific [place] 1.018 (1.010-1.035) 06/12/19 15:10 Urine Protein Negative (NEGATIVE) 06/12/19 15:10 Urine Glucose (UA) Negative (NEGATIVE) 06/12/19 15:10 Urine Ketones Negative (NEGATIVE) 06/12/19 15:10 Urine Blood Negative (NEGATIVE) 06/12/19 15:10 Urine Nitrite Negative (NEGATIVE) 06/12/19 15:10 Urine Bilirubin Negative (NEGATIVE) 06/12/19 15:10 Urine Urobilinogen 1.0 mg/dL (0.2-1.0) 06/12/19 15:10 Ur Leukocyte Esterase Negative (NEGATIVE) 06/12/19 15:10 Labs noted. Assessment: 06/15/19 13:58 AOX 3, in no respiratory distress. Full ROM, ambulating in the unit. Mild Withdrawal symptoms. For d/c tomorrow.
[2019-06-15] MEDS: IBUPROFEN 400 MG TABLET (FP) PO PRN (17:55)
[2019-06-15] MEDS: METHOCARBAMOL 500 MG TABLET PO PRN (17:56)
[2019-06-15] MEDS: traZODone HCL 50 MG TABLET (FP) PO SCH (22:20)
[2019-06-15] MEDS: THIAMINE HCL 100 MG TABLET (FP) PO SCH (22:20)
[2019-06-16] MEDS ORDERED: METHADONE HCL 5 MG TABLET (FOR DETOX USE ONLY) PO ONE (06:00)
[2019-06-16 09:52] VITALS: BP 104/55; PULSE 97; TEMP 97.3
[2019-06-16] MEDS: HYDROCHLOROTHIAZIDE 25 MG TABLET (FP) PO SCH (10:00)
[2019-06-16] MEDS: amLODIPine BESYLATE 10 MG TABLET (FP) PO SCH (10:00)
[2019-06-16] MEDS: PRENATAL VITAMINS W/ FOLIC ACID TABLET (FP) PO SCH (10:00)
[2019-06-16] MEDS: NICOTINE 14 MG/24 HOURS TOPICAL PATCH TD SCH (10:00)
--- NOTE | 2019-06-16 11:15 | DS ---
[facility] Detox Discharge Summary Admission Date: 06/11/19 Discharge Date: 06/16/19 - History Present History: Opioid Dependence Additional Comments: 63 years old female admitted on 06/11/19 for opiate withdrawal sx management treated with methadone detox regiment patient has completed methadone regiment and tolerated well seen by psychiatrist resume wellbutrim trazadone patient is alert oriented x 3 speech clearly coherently ambulating with walker steady gait respiratory clear lungs bilaterally on auscultation abdomen soft round obese no rebound tenderness skin warm and dry Pertinent Past History: time for discharge: 28minutes - Physical Exam Results Vital Signs: Vital Signs Temperature 97.3 F L 06/16/19 09:00 Pulse Rate 97 H 06/16/19 09:00 Respiratory Rate 18 06/16/19 09:00 Blood Pressure 104/55 L 06/16/19 09:00 O2 Sat by Pulse Oximetry (%) Pertinent Admission Physical Exam Findings: opiate withdrawal Laboratory Last Values WBC 3.8 K/mm3 (4.0-10.0) L 06/12/19 06:00 RBC 4.47 M/mm3 (3.60-5.2) 06/12/19 06:00 Hgb 11.9 GM/dL (10.7-15.3) 06/12/19 06:00 Hct 36.6 % (32.4-45.2) 06/12/19 06:00 MCV 82.0 fl (80-96) 06/12/19 06:00 MCH 26.6 pg (25.7-33.7) 06/12/19 06:00 MCHC 32.5 g/dl (32.0-36.0) 06/12/19 06:00 RDW 17.1 % (11.6-15.6) H 06/12/19 06:00 Plt Count 195 K/MM3 (134-434) D 06/12/19 06:00 MPV 9.0 fl (7.5-11.1) 06/12/19 06:00 Sodium 140 mmol/L (136-145) 06/12/19 06:00 Potassium 3.9 mmol/L (3.5-5.1) 06/12/19 06:00 Chloride 107 mmol/L (98-107) 06/12/19 06:00 Carbon Dioxide 25 mmol/L (21-32) 06/12/19 06:00 Anion Gap 8 MMOL/L (8-16) 06/12/19 06:00 BUN 13.4 mg/dL (7-18) 06/12/19 06:00 Creatinine 0.7 mg/dL (0.55-1.3) 06/12/19 06:00 Est GFR (CKD-EPI)AfAm 106.87 06/12/19 06:00 Est GFR (CKD-EPI)NonAf 92.21 06/12/19 06:00 Random Glucose 86 mg/dL (74-106) 06/12/19 06:00 Calcium 8.6 mg/dL (8.5-10.1) 06/12/19 06:00 Total Bilirubin 0.4 mg/dL (0.2-1) 06/12/19 06:00 AST 13 U/L (15-37) L 06/12/19 06:00 ALT 13 U/L (13-61) 06/12/19 06:00 Alkaline Phosphatase 64 U/L (45-117) 06/12/19 06:00 Total Protein 6.3 g/dl (6.4-8.2) L 06/12/19 06:00 Albumin 3.3 g/dl (3.4-5.0) L 06/12/19 06:00 Urine Color Yellow 06/12/19 15:10 Urine Appearance Clear 06/12/19 15:10 Urine pH 6.0 (5.0-8.0) 06/12/19 15:10 Ur Specific [place] 1.018 (1.010-1.035) 06/12/19 15:10 Urine Protein Negative (NEGATIVE) 06/12/19 15:10 Urine Glucose (UA) Negative (NEGATIVE) 06/12/19 15:10 Urine Ketones Negative (NEGATIVE) 06/12/19 15:10 Urine Blood Negative (NEGATIVE) 06/12/19 15:10 Urine Nitrite Negative (NEGATIVE) 06/12/19 15:10 Urine Bilirubin Negative (NEGATIVE) 06/12/19 15:10 Urine Urobilinogen 1.0 mg/dL (0.2-1.0) 06/12/19 15:10 Ur Leukocyte Esterase Negative (NEGATIVE) 06/12/19 15:10 lab noted - Treatment Hospital Course: Detox Protocol Followed, Detoxed Safely, Responded well, Discharged Condition Good, Rehab Referral Accepted Patient has Accepted a Rehab Referral to: [facility] - Medication Discharge Medications: Ambulatory Orders Amlodipine Besylate [Norvasc -] 10 mg PO DAILY 02/06/19 Bupropion HCl [Wellbutrin -] 150 mg PO DAILY 02/06/19 Hydrochlorothiazide 50 mg PO DAILY 02/06/19 Naproxen [Naprosyn] 500 mg PO DAILY PRN 06/11/19 Trazodone HCl 50 mg PO HS 06/11/19 - Diagnosis (1) Opioid dependence with withdrawal Status: Acute (2) Essential (primary) hypertension Status: Chronic (3) Nicotine dependence, unspecified, uncomplicated Status: Acute Qualifiers: Nicotine product type: cigarettes Qualified Code(s): F17.210 - Nicotine dependence, cigarettes, uncomplicated (4) Obesity (BMI 30-39.9) Status: Chronic (5) Substance induced mood disorder Status: Suspected (6) History of positive PPD Status: Resolved (7) Walker as ambulation aid Status: Chronic - AMA Did Patient Leave Against Medical Advice: No COWS (PN) - Opiate Withdrawal Resting Pulse: 1= [place] 81-100 Sweatin= No chills or Flushing Restless Observation: 0= Sits Still Pupil Size: 0= Normal to Room Light Bone or Joint Aches: 0= None Runny Nose/ Eye Tearin= None GI Upset > 30mins: 0= None Tremor Observation of Outstretched Hands: 0= None Yawning Observation: 0= None Anxiety or Irritability: 1=Feels Anxious/Irritable Goose Flesh Skin: 0=Smooth Skin COWS Score: 2
== END 2019-06-16 10:25 | disposition other institution (70) | DRG 773 ==
LOC: YASAS 16:14 → Y3N 21:38
PROVIDERS: ADMIT Allergy & Immunology; ATTEND Allergy & Immunology
PROC: HZ2ZZZZ Detoxification Services for Substance Abuse Treatment (ICD-10-PCS; principal; 2019-06-11)
DX: F11.23 Opioid dependence with withdrawal (principal); F14.20 Cocaine dependence, uncomplicated; F17.210 Nicotine dependence, cigarettes, uncomplicated; F19.24 Other psychoactive substance dependence with psychoactive substance-induced mood disorder; I10 Essential (primary) hypertension; M19.90 Unspecified osteoarthritis, unspecified site; M54.5 Low back pain; G89.29 Other chronic pain; B18.2 Chronic viral hepatitis C; E66.9 Obesity, unspecified; Z68.38 Body mass index [BMI] 38.0-38.9, adult; R26.2 Difficulty in walking, not elsewhere classified; Z99.89 Dependence on other enabling machines and devices; Z96.643 Presence of artificial hip joint, bilateral; Z91.5 Personal history of self-harm
CPT/HCPCS: 36415; 80053; 81003; 85027; 93005; 93010; J0735

== ENCOUNTER 2019-06-16 09:08 | Inpatient (IN) | payer OTHER ==
[2019-06-16] MEDS ORDERED: MAGNESIUM CITRATE 300 ML BOTTLE PO PRN (11:20)
[2019-06-16] MEDS ORDERED: LOPERAMIDE HCL 2 MG CAPSULE PO PRN (11:20)
[2019-06-16] MEDS ORDERED: NICOTINE POLACRILEX 2 MG GUM BUC PRN (11:20)
[2019-06-16] MEDS ORDERED: guaiFENesin 200 MG/10 ML 10 ML UNIT-DOSE CUPS PO PRN (11:20)
[2019-06-16] MEDS ORDERED: MAG HYDROX/AL HYDROX/SIMETH 30 ML UNIT-DOSE CUP PO PRN (11:20)
[2019-06-16] MEDS ORDERED: MENTHOL/PHENOL 1 EACH UD MM PRN (11:20)
[2019-06-16] MEDS ORDERED: ACETAMINOPHEN 325 MG TABLET (FP) PO PRN (11:20)
[2019-06-16] MEDS ORDERED: P-EPHED 60MG/TRIPROLIDI 2.5MG TABLET PO PRN (11:20)
--- NOTE | 2019-06-16 11:20 | HP ---
[facility] Rehab Assess/Revision - Admission History Admitted to Rehab from: [facility] Date of Admission to Rehab: 06/16/19 - Findings Detox History & Physical reviewed: Yes Concur with findings: Yes Comments/Additional Findings: transferred from detox to rehab admission as per protocol Inpatient Rehab Admission - Rehab Decision to Admit Inpatient rehab admission?: Yes - Initial Determination Are CD services needed?: Yes Free of communicable disease: Yes Not in need of hospitalization: Yes - Rehab Admission Criteria Previous failed treatment: Yes Poor recovery environment: Yes Comorbidities: Yes Lacks judgement: Yes Patient is meeting Inpatient Rehab admission criteria:: Yes
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
[2019-06-16] MEDS: IBUPROFEN 400 MG TABLET (FP) PO PRN (14:25)
--- NOTE | 2019-06-16 18:25 | PN ---
[facility] Progress Note Note: Patient is referred for left arm numbness. As per patient, this has been going on for at least 3 months, numbness goes to the face sometimes. She also reports numbness sometimes affects the right side, she also reports this is the reason why she is unable to walk. She denies h/o neuropathy or spinal injury. She denies headache, dizziness or any other associated symptoms. On exam, patient is seated in wheel chair in no apparent distress. PE Vital Signs Temperature 98.1 F 06/16/19 11:44 Pulse Rate 83 06/16/19 17:55 Respiratory Rate 18 06/16/19 17:55 Blood Pressure 127/80 06/16/19 17:55 O2 Sat by Pulse Oximetry (%) 98 06/16/19 17:56 HEENT: No headache, PERRL Lungs:Clear in all tineo CVS:S1S2, RRR Neuro: A&O x 3, no focal deficits, moves UE equally, muscle strength 5/5 UE A/P Patient seen for numbness in left arm that appears to be chronic, however, patient instructed to report worsening symptoms for possible ED transfer for further evaluation ASA 81mg daily ordered Monitoring ongoing d/w nursing
[2019-06-16] MEDS: ASPIRIN COATED 81 MG TABLET.EC PO SCH (18:33)
[2019-06-16] MEDS: traZODone HCL 50 MG TABLET (FP) PO SCH (21:33)
[2019-06-16] MEDS: MELATONIN 5 MG TABLETS PO PRN (21:34)
[2019-06-16] MEDS: THIAMINE HCL 100 MG TABLET (FP) PO SCH (21:34)
[2019-06-16] MEDS ORDERED: traZODone HCL 50 MG TABLET (FP) PO SCH (22:00)
[2019-06-17] MEDS: PRENATAL VITAMINS W/ FOLIC ACID TABLET (FP) PO SCH (10:15)
[2019-06-17] MEDS: ASPIRIN COATED 81 MG TABLET.EC PO SCH (10:15)
[2019-06-17] MEDS: NICOTINE 14 MG/24 HOURS TOPICAL PATCH TD SCH (10:15)
[2019-06-17] MEDS: HYDROCHLOROTHIAZIDE 25 MG TABLET (FP) PO SCH (11:12)
[2019-06-17] MEDS: amLODIPine BESYLATE 10 MG TABLET (FP) PO SCH (11:12)
[2019-06-17] MEDS: LIDOCAINE 5% TOPICAL PATCH TP SCH (12:56)
--- NOTE | 2019-06-17 12:57 | PN ---
[facility] Progress Note Note: Notified by nursing staff, patient interested in starting Suboxone MAT. Patient eating lunch at this time, chart reviewed. ISTOP negative. Patient transferred from Detox 06/16/2019 and it is too soon to start treatment. However, Jazlyn STEIN. to inform counselor to connect patient to outpatient program and urine toxicology ordered in anticipation of starting treatment. Vital Signs Temperature 97.4 F L 06/17/19 06:40 Pulse Rate 81 06/17/19 11:07 Respiratory Rate 18 06/17/19 06:40 Blood Pressure 106/67 06/17/19 11:07 O2 Sat by Pulse Oximetry (%) 98 06/16/19 17:56
[2019-06-17] MEDS: IBUPROFEN 400 MG TABLET (FP) PO PRN (13:00)
[2019-06-17] MEDS: THIAMINE HCL 100 MG TABLET (FP) PO SCH (21:36)
[2019-06-17] MEDS: LIDOCAINE PATCH REMOVAL MC SCH (21:37)
[2019-06-17] MEDS: traZODone HCL 50 MG TABLET (FP) PO SCH (21:37)
[2019-06-18] MEDS: NICOTINE 14 MG/24 HOURS TOPICAL PATCH TD SCH (10:15)
[2019-06-18] MEDS: LIDOCAINE 5% TOPICAL PATCH TP SCH (10:16)
[2019-06-18] MEDS: PRENATAL VITAMINS W/ FOLIC ACID TABLET (FP) PO SCH (10:16)
[2019-06-18] MEDS: amLODIPine BESYLATE 10 MG TABLET (FP) PO SCH (10:16)
[2019-06-18] MEDS: ASPIRIN COATED 81 MG TABLET.EC PO SCH (10:16)
[2019-06-18] MEDS: HYDROCHLOROTHIAZIDE 25 MG TABLET (FP) PO SCH (10:17)
--- NOTE | 2019-06-18 14:25 | PN ---
[facility] Progress Note Note: Pt is a 63 y/o female with a hx of JAIRON admitted to rehab after completing detox on 3 diggs on 06/16/19. PMHx:Asthma,Anemia,HTN,Hep C. Psych Hx:Depression. Pt reports she has a primary care provider Dr. Riley @ [facility] on [address], [place]. Pt is interested in restarting suboxone because she says she was on Suboxone 8mg/2 mg sl TID then decreased to 8 mg/2 mg sl BID in October,,stating she was on it for more than [address] Snow and Dr. Basurto. Reports she Last had Rx from doctor in . Below is a PNP obtained with the name she claimed she had on her card at the time of service. Pt reports the discrepancy in her first name was from error in her [employer] insurance card but Toya in Medicaid Card. Others' Prescriptions Patient Name: Audra Kelly Date: 1955 Address: [address] [place] [address] Sex: Female Rx Written Rx Dispensed Drug Quantity Days Supply Prescriber Name 10/19/2018 10/19/2018 suboxone 8 mg-2 mg sl film 60 30 Darío Riley MD 09/19/2018 09/19/2018 suboxone 8 mg-2 mg sl film 60 30 Darío Riley MD 08/22/2018 08/22/2018 suboxone 8 mg-2 mg sl film 60 30 Darío Riley MD 07/25/2018 07/25/2018 suboxone 8 mg-2 mg sl film 60 30 Darío Riley MD 06/26/2018 06/26/2018 suboxone 4 mg-1 mg sl film 30 30 Darío Riley MD 06/26/2018 06/26/2018 suboxone 8 mg-2 mg sl film 60 30 Darío Riley MD Vital Signs - 24 hr 06/18/19 06/18/19 06/18/19 03:36 06:45 09:46 Temperature 97.8 F Pulse Rate 91 H 82 Respiratory 18 18 18 Rate Blood Pressure 108/77 121/78 Alert o x 3 nad oob ambulating with WC A/P JAIRON s/p detox Maintain safety increase po fluids as tolerated To follow up with result of on UDS consider restarting on suboxone appropriately(reports experience with precipitated w/s in the past). Pt has met with her counselor Ms Reji Scales and will be following up with Suboxone MAT treatment at [facility].
[2019-06-18 18:05] LABS: COCAINE, UR NEGATIVE ng/ml (CUTOFF=300); OPIATES, URI NEGATIVE ng/ml (CUTOFF=300); PHENCYCLIDINE,URINE NEGATIVE ng/ml (CUTOFF=25); URINE AMPHETAMINES NEGATIVE ng/ml (CUTOFF=500); URINE BARBITURATES NEGATIVE ng/ml (CUTOFF=200); URINE BENZODIAZEPINES NEGATIVE ng/ml (CUTOFF=200)
[2019-06-18 18:06] LABS: METHADONE, UR POSITIVE ng/ml (CUTOFF=300)
[2019-06-18] MEDS: THIAMINE HCL 100 MG TABLET (FP) PO SCH (21:22)
[2019-06-18] MEDS: LIDOCAINE PATCH REMOVAL MC SCH (21:22)
[2019-06-18] MEDS: traZODone HCL 50 MG TABLET (FP) PO SCH (21:22)
[2019-06-19] MEDS: LIDOCAINE 5% TOPICAL PATCH TP SCH (10:00)
[2019-06-19] MEDS: HYDROCHLOROTHIAZIDE 25 MG TABLET (FP) PO SCH (10:01)
[2019-06-19] MEDS: amLODIPine BESYLATE 10 MG TABLET (FP) PO SCH (10:01)
[2019-06-19] MEDS: PRENATAL VITAMINS W/ FOLIC ACID TABLET (FP) PO SCH (10:02)
[2019-06-19] MEDS: ASPIRIN COATED 81 MG TABLET.EC PO SCH (10:02)
[2019-06-19] MEDS: NICOTINE 14 MG/24 HOURS TOPICAL PATCH TD SCH (10:03)
[2019-06-19] MEDS: MAGNESIUM HYDROX 2400MG/30ML ORAL SUSPENSION 30 ML CUP PO PRN (10:29)
--- NOTE | 2019-06-19 14:57 | PN ---
[facility] Progress Note Note: Pt reports to Nurse Kristin that she takes Hydrochlorothiazide 25 mg daily and not 50 mg as currently profiled. Vital Signs - 24 hr 06/19/19 06/19/19 06/19/19 00:38 03:38 06:49 Temperature 97.5 F L Pulse Rate 94 H Respiratory 16 18 18 Rate Blood Pressure 128/81 06/19/19 09:45 Temperature Pulse Rate 99 H Respiratory Rate Blood Pressure 107/67 Alert o x 3 nad oob ambulating with wc A/P Hx HTN decrease Hydrochlorothiazide to 25 mg po daily.
[2019-06-19] MEDS: LIDOCAINE PATCH REMOVAL MC SCH (21:18)
[2019-06-19] MEDS: THIAMINE HCL 100 MG TABLET (FP) PO SCH (21:18)
[2019-06-19] MEDS: traZODone HCL 50 MG TABLET (FP) PO SCH (21:18)
[2019-06-19] MEDS: IBUPROFEN 400 MG TABLET (FP) PO PRN (21:19)
[2019-06-20] MEDS: PRENATAL VITAMINS W/ FOLIC ACID TABLET (FP) PO SCH (10:03)
[2019-06-20] MEDS: ASPIRIN COATED 81 MG TABLET.EC PO SCH (10:03)
[2019-06-20] MEDS: HYDROCHLOROTHIAZIDE 25 MG TABLET (FP) PO SCH (10:03)
[2019-06-20] MEDS: amLODIPine BESYLATE 10 MG TABLET (FP) PO SCH (10:03)
[2019-06-20] MEDS: NICOTINE 14 MG/24 HOURS TOPICAL PATCH TD SCH (10:04)
[2019-06-20] MEDS: LIDOCAINE 5% TOPICAL PATCH TP SCH (10:04)
[2019-06-20] MEDS ORDERED: BUPRENORPHINE/NALOXONE 2 MG/0.5 MG FILM PACKET SL ONE ×2 (14:41→18:00)
--- NOTE | 2019-06-20 14:44 | PN ---
[facility] COWS - Scale Resting Pulse: 1= [place] 81-100 Sweatin= Chills/Flushing Restless Observation: 0= Sits Still Pupil Size: 0= Normal to Room Light Bone or Joint Aches: 4=Acute Joint/Muscle Pain Runny Nose/ Eye Tearin= Runny Nose/Eyes GI Upset > 30mins: 0= None Tremor Observation of Outstretched Hands: 1= Tremor [place], Not Seen Yawning Observation: 2= >3x During Session Anxiety or Irritability: 2=Irritable/Anxious Goose Flesh Skin: 0=Smooth Skin COWS Score: 13 BHS Progress Note (SOAP) Subjective: Pt c/o withdrawal sx and wants to get back on suboxone today. Objective: 06/20/19 14:40 Vital Signs - 24 hr 06/20/19 06/20/19 06/20/19 00:35 03:35 06:40 Temperature 97.2 F L Pulse Rate 93 H Respiratory 18 18 18 Rate Blood Pressure 123/78 06/20/19 09:24 Temperature Pulse Rate 98 H Respiratory Rate Blood Pressure 117/79 Laboratory Tests 06/17/19 10:20 Opiates Screen Negative Methadone Screen Positive A* Barbiturate Screen Negative Phencyclidine Screen Negative Ur Amphetamines Screen Negative MDMA (Ecstasy) Screen Positive A* Benzodiazepines Screen Negative Cocaine Screen Negative U Marijuana (THC) Screen Negative URINE DRUG SCREEN RESULTS Drug Screen Negative No Urine Drug Screen Results MTD-Methadone Assessment: 06/20/19 14:40 JAIRON s/p detox protracted w/s Plan: d/w pt will start with 2mg/0.5 mg sl now then at 6pm today monitor patient for ppt w/s d/w pt Suboxone will adjust to 4mg/1mg sl BID starting 06/21/19.
[2019-06-20] MEDS: THIAMINE HCL 100 MG TABLET (FP) PO SCH (21:29)
[2019-06-20] MEDS: MELATONIN 5 MG TABLETS PO PRN (21:29)
[2019-06-20] MEDS: traZODone HCL 50 MG TABLET (FP) PO SCH (21:30)
[2019-06-20] MEDS: LIDOCAINE PATCH REMOVAL MC SCH (21:31)
[2019-06-21] MEDS: PRENATAL VITAMINS W/ FOLIC ACID TABLET (FP) PO SCH (10:09)
[2019-06-21] MEDS: ASPIRIN COATED 81 MG TABLET.EC PO SCH (10:09)
[2019-06-21] MEDS: LIDOCAINE 5% TOPICAL PATCH TP SCH (10:10)
[2019-06-21] MEDS: HYDROCHLOROTHIAZIDE 25 MG TABLET (FP) PO SCH (10:10)
[2019-06-21] MEDS: BUPRENORPHINE/NALOXONE 4 MG/1 MG FILM PACKET SL SCH ×2 (10:10→18:01)
[2019-06-21] MEDS: amLODIPine BESYLATE 10 MG TABLET (FP) PO SCH (10:10)
[2019-06-21] MEDS: NICOTINE 14 MG/24 HOURS TOPICAL PATCH TD SCH (10:10)
[2019-06-21] MEDS: THIAMINE HCL 100 MG TABLET (FP) PO SCH (21:23)
[2019-06-21] MEDS: traZODone HCL 50 MG TABLET (FP) PO SCH (21:23)
[2019-06-21] MEDS: IBUPROFEN 400 MG TABLET (FP) PO PRN (21:24)
[2019-06-21] MEDS ORDERED: PT OWN MED DRAWER 7, Y5N ONE (22:32)
[2019-06-21] MEDS: LIDOCAINE PATCH REMOVAL MC SCH (22:40)
[2019-06-22] MEDS: ASPIRIN COATED 81 MG TABLET.EC PO SCH (10:19)
[2019-06-22] MEDS: PRENATAL VITAMINS W/ FOLIC ACID TABLET (FP) PO SCH (10:19)
[2019-06-22] MEDS: NICOTINE 14 MG/24 HOURS TOPICAL PATCH TD SCH (10:19)
[2019-06-22] MEDS: BUPRENORPHINE/NALOXONE 4 MG/1 MG FILM PACKET SL SCH ×2 (10:20→17:50)
[2019-06-22] MEDS: amLODIPine BESYLATE 10 MG TABLET (FP) PO SCH (10:20)
[2019-06-22] MEDS: LIDOCAINE 5% TOPICAL PATCH TP SCH (10:20)
[2019-06-22] MEDS: HYDROCHLOROTHIAZIDE 25 MG TABLET (FP) PO SCH (10:20)
[2019-06-22] MEDS: THIAMINE HCL 100 MG TABLET (FP) PO SCH (21:32)
[2019-06-22] MEDS: MELATONIN 5 MG TABLETS PO PRN (21:32)
[2019-06-22] MEDS: LIDOCAINE PATCH REMOVAL MC SCH (21:33)
[2019-06-22] MEDS: traZODone HCL 50 MG TABLET (FP) PO SCH (21:33)
[2019-06-23] MEDS: amLODIPine BESYLATE 10 MG TABLET (FP) PO SCH (10:29)
[2019-06-23] MEDS: LIDOCAINE 5% TOPICAL PATCH TP SCH (10:29)
[2019-06-23] MEDS: BUPRENORPHINE/NALOXONE 4 MG/1 MG FILM PACKET SL SCH ×2 (10:29→17:22)
[2019-06-23] MEDS: HYDROCHLOROTHIAZIDE 25 MG TABLET (FP) PO SCH (10:29)
[2019-06-23] MEDS: PRENATAL VITAMINS W/ FOLIC ACID TABLET (FP) PO SCH (10:30)
[2019-06-23] MEDS: NICOTINE 14 MG/24 HOURS TOPICAL PATCH TD SCH (10:30)
[2019-06-23] MEDS: ASPIRIN COATED 81 MG TABLET.EC PO SCH (10:30)
[2019-06-23] MEDS: THIAMINE HCL 100 MG TABLET (FP) PO SCH (21:18)
[2019-06-23] MEDS: traZODone HCL 50 MG TABLET (FP) PO SCH (21:18)
[2019-06-23] MEDS: LIDOCAINE PATCH REMOVAL MC SCH (21:19)
[2019-06-24] MEDS: PRENATAL VITAMINS W/ FOLIC ACID TABLET (FP) PO SCH (10:12)
[2019-06-24] MEDS: HYDROCHLOROTHIAZIDE 25 MG TABLET (FP) PO SCH (10:13)
[2019-06-24] MEDS: ASPIRIN COATED 81 MG TABLET.EC PO SCH (10:13)
[2019-06-24] MEDS: amLODIPine BESYLATE 10 MG TABLET (FP) PO SCH (10:13)
[2019-06-24] MEDS: BUPRENORPHINE/NALOXONE 4 MG/1 MG FILM PACKET SL SCH ×2 (10:13→17:55)
[2019-06-24] MEDS: NICOTINE 14 MG/24 HOURS TOPICAL PATCH TD SCH (10:14)
[2019-06-24] MEDS: LIDOCAINE 5% TOPICAL PATCH TP SCH (10:14)
[2019-06-24] MEDS: THIAMINE HCL 100 MG TABLET (FP) PO SCH (21:34)
[2019-06-24] MEDS: traZODone HCL 50 MG TABLET (FP) PO SCH (21:34)
[2019-06-24] MEDS: AMMONIUM LACTATE 12% LOTION 225 GM BOTTLE TP SCH (21:35)
[2019-06-24] MEDS: LIDOCAINE PATCH REMOVAL MC SCH (21:35)
[2019-06-25] MEDS: NICOTINE 14 MG/24 HOURS TOPICAL PATCH TD SCH (10:19)
[2019-06-25] MEDS: PRENATAL VITAMINS W/ FOLIC ACID TABLET (FP) PO SCH (10:19)
[2019-06-25] MEDS: ASPIRIN COATED 81 MG TABLET.EC PO SCH (10:19)
[2019-06-25] MEDS: LIDOCAINE 5% TOPICAL PATCH TP SCH (10:19)
[2019-06-25] MEDS: amLODIPine BESYLATE 10 MG TABLET (FP) PO SCH (10:19)
[2019-06-25] MEDS: HYDROCHLOROTHIAZIDE 25 MG TABLET (FP) PO SCH (10:19)
[2019-06-25] MEDS: AMMONIUM LACTATE 12% LOTION 225 GM BOTTLE TP SCH ×2 (10:19→21:46)
[2019-06-25] MEDS: BUPRENORPHINE/NALOXONE 4 MG/1 MG FILM PACKET SL SCH ×2 (10:20→17:40)
[2019-06-25] MEDS: traZODone HCL 50 MG TABLET (FP) PO SCH (21:14)
[2019-06-25] MEDS: LIDOCAINE PATCH REMOVAL MC SCH (21:15)
[2019-06-25] MEDS: THIAMINE HCL 100 MG TABLET (FP) PO SCH (21:15)
[2019-06-25] MEDS: MELATONIN 5 MG TABLETS PO PRN (21:15)
[2019-06-25] MEDS: IBUPROFEN 400 MG TABLET (FP) PO PRN (21:16)
[2019-06-26] MEDS: LIDOCAINE 5% TOPICAL PATCH TP SCH (10:13)
[2019-06-26] MEDS: NICOTINE 14 MG/24 HOURS TOPICAL PATCH TD SCH (10:14)
[2019-06-26] MEDS: amLODIPine BESYLATE 10 MG TABLET (FP) PO SCH (10:15)
[2019-06-26] MEDS: ASPIRIN COATED 81 MG TABLET.EC PO SCH (10:15)
[2019-06-26] MEDS: HYDROCHLOROTHIAZIDE 25 MG TABLET (FP) PO SCH (10:15)
[2019-06-26] MEDS: PRENATAL VITAMINS W/ FOLIC ACID TABLET (FP) PO SCH (10:15)
[2019-06-26] MEDS: AMMONIUM LACTATE 12% LOTION 225 GM BOTTLE TP SCH ×2 (10:15→21:32)
[2019-06-26] MEDS: BUPRENORPHINE/NALOXONE 4 MG/1 MG FILM PACKET SL SCH ×2 (10:16→17:36)
[2019-06-26] MEDS ORDERED: COLLOIDAL OATMEAL 1 BAR EACH TP PRN (15:07)
--- NOTE | 2019-06-26 15:20 | PN ---
[facility] Progress Note Note: Pt c/o itchy rash under her Right breast. Reports has been there and uses cream at home. Vital Signs - 24 hr 06/26/19 06/26/19 06/26/19 00:37 03:23 06:48 Temperature 97.7 F Pulse Rate 93 H Respiratory 16 16 18 Rate Blood Pressure 112/69 06/26/19 09:58 Temperature Pulse Rate 91 H Respiratory Rate Blood Pressure 120/70 Alert o x 3 nad oob ambulating with wheelchair skin:brownish lesion under right breast A/P Heat Rash Hydrocortisone cream 1% apply to affected area BID D/w pt to keep area clean and dry Pat dry skin area after cleaning or showering.
[2019-06-26] MEDS: traZODone HCL 50 MG TABLET (FP) PO SCH (21:31)
[2019-06-26] MEDS: THIAMINE HCL 100 MG TABLET (FP) PO SCH (21:31)
[2019-06-26] MEDS: LIDOCAINE PATCH REMOVAL MC SCH (21:32)
[2019-06-26] MEDS: MELATONIN 5 MG TABLETS PO PRN (21:32)
[2019-06-26] MEDS: HYDROCORTISONE 1% TOPICAL CREAM 30 GM TUBE TP SCH (21:33)
[2019-06-27] MEDS ORDERED: PT OWN MED DRAWER 7, Y5N ONE ×2 (08:17→21:30)
[2019-06-27] MEDS: LIDOCAINE 5% TOPICAL PATCH TP SCH (10:18)
[2019-06-27] MEDS: ASPIRIN COATED 81 MG TABLET.EC PO SCH (10:20)
[2019-06-27] MEDS: amLODIPine BESYLATE 10 MG TABLET (FP) PO SCH (10:21)
[2019-06-27] MEDS: PRENATAL VITAMINS W/ FOLIC ACID TABLET (FP) PO SCH (10:21)
[2019-06-27] MEDS: HYDROCHLOROTHIAZIDE 25 MG TABLET (FP) PO SCH (10:21)
[2019-06-27] MEDS: NICOTINE 14 MG/24 HOURS TOPICAL PATCH TD SCH (10:22)
[2019-06-27] MEDS: AMMONIUM LACTATE 12% LOTION 225 GM BOTTLE TP SCH ×2 (10:23→21:53)
[2019-06-27] MEDS: BUPRENORPHINE/NALOXONE 4 MG/1 MG FILM PACKET SL SCH ×2 (10:23→17:44)
[2019-06-27] MEDS: HYDROCORTISONE 1% TOPICAL CREAM 30 GM TUBE TP SCH ×2 (10:23→21:30)
[2019-06-27] MEDS: IBUPROFEN 400 MG TABLET (FP) PO PRN ×2 (10:25→21:30)
[2019-06-27] MEDS: traZODone HCL 50 MG TABLET (FP) PO SCH (21:28)
[2019-06-27] MEDS: THIAMINE HCL 100 MG TABLET (FP) PO SCH (21:28)
[2019-06-27] MEDS: MELATONIN 5 MG TABLETS PO PRN (21:28)
[2019-06-27] MEDS: LIDOCAINE PATCH REMOVAL MC SCH (21:29)
[2019-06-28] MEDS: LIDOCAINE 5% TOPICAL PATCH TP SCH (10:11)
[2019-06-28] MEDS: HYDROCHLOROTHIAZIDE 25 MG TABLET (FP) PO SCH (10:12)
[2019-06-28] MEDS: BUPRENORPHINE/NALOXONE 4 MG/1 MG FILM PACKET SL SCH ×2 (10:12→18:01)
[2019-06-28] MEDS: HYDROCORTISONE 1% TOPICAL CREAM 30 GM TUBE TP SCH ×2 (10:12→21:25)
[2019-06-28] MEDS: NICOTINE 14 MG/24 HOURS TOPICAL PATCH TD SCH (10:12)
[2019-06-28] MEDS: amLODIPine BESYLATE 10 MG TABLET (FP) PO SCH (10:12)
[2019-06-28] MEDS: PRENATAL VITAMINS W/ FOLIC ACID TABLET (FP) PO SCH (10:12)
[2019-06-28] MEDS: AMMONIUM LACTATE 12% LOTION 225 GM BOTTLE TP SCH ×2 (10:13→21:24)
[2019-06-28] MEDS: ASPIRIN COATED 81 MG TABLET.EC PO SCH (11:10)
[2019-06-28] MEDS: MELATONIN 5 MG TABLETS PO PRN (21:23)
[2019-06-28] MEDS: IBUPROFEN 400 MG TABLET (FP) PO PRN (21:23)
[2019-06-28] MEDS: traZODone HCL 50 MG TABLET (FP) PO SCH (21:23)
[2019-06-28] MEDS: THIAMINE HCL 100 MG TABLET (FP) PO SCH (21:23)
[2019-06-28] MEDS: LIDOCAINE PATCH REMOVAL MC SCH (21:24)
[2019-06-29] MEDS: ASPIRIN COATED 81 MG TABLET.EC PO SCH (10:23)
[2019-06-29] MEDS: NICOTINE 14 MG/24 HOURS TOPICAL PATCH TD SCH (10:24)
[2019-06-29] MEDS: HYDROCHLOROTHIAZIDE 25 MG TABLET (FP) PO SCH (10:24)
[2019-06-29] MEDS: PRENATAL VITAMINS W/ FOLIC ACID TABLET (FP) PO SCH (10:24)
[2019-06-29] MEDS: amLODIPine BESYLATE 10 MG TABLET (FP) PO SCH (10:24)
[2019-06-29] MEDS: LIDOCAINE 5% TOPICAL PATCH TP SCH (10:25)
[2019-06-29] MEDS: BUPRENORPHINE/NALOXONE 4 MG/1 MG FILM PACKET SL SCH ×2 (10:26→17:45)
[2019-06-29] MEDS: HYDROCORTISONE 1% TOPICAL CREAM 30 GM TUBE TP SCH ×2 (10:26→21:57)
[2019-06-29] MEDS: AMMONIUM LACTATE 12% LOTION 225 GM BOTTLE TP SCH ×2 (10:26→21:57)
[2019-06-29] MEDS ORDERED: PT OWN MED DRAWER 7, Y5N ONE (20:27)
[2019-06-29] MEDS: traZODone HCL 50 MG TABLET (FP) PO SCH (21:20)
[2019-06-29] MEDS: THIAMINE HCL 100 MG TABLET (FP) PO SCH (21:21)
[2019-06-29] MEDS: MELATONIN 5 MG TABLETS PO PRN (21:21)
[2019-06-29] MEDS: LIDOCAINE PATCH REMOVAL MC SCH (21:58)
[2019-06-30] MEDS: amLODIPine BESYLATE 10 MG TABLET (FP) PO SCH (09:59)
[2019-06-30] MEDS: HYDROCHLOROTHIAZIDE 25 MG TABLET (FP) PO SCH (09:59)
[2019-06-30] MEDS: PRENATAL VITAMINS W/ FOLIC ACID TABLET (FP) PO SCH (09:59)
[2019-06-30] MEDS: ASPIRIN COATED 81 MG TABLET.EC PO SCH (09:59)
[2019-06-30] MEDS: NICOTINE 14 MG/24 HOURS TOPICAL PATCH TD SCH (10:00)
[2019-06-30] MEDS: LIDOCAINE 5% TOPICAL PATCH TP SCH (10:00)
[2019-06-30] MEDS: BUPRENORPHINE/NALOXONE 4 MG/1 MG FILM PACKET SL SCH ×2 (10:01→17:29)
[2019-06-30] MEDS: HYDROCORTISONE 1% TOPICAL CREAM 30 GM TUBE TP SCH ×2 (10:01→21:18)
[2019-06-30] MEDS: AMMONIUM LACTATE 12% LOTION 225 GM BOTTLE TP SCH ×2 (10:06→21:18)
[2019-06-30] MEDS: MAGNESIUM HYDROX 2400MG/30ML ORAL SUSPENSION 30 ML CUP PO PRN (17:30)
[2019-06-30] MEDS: THIAMINE HCL 100 MG TABLET (FP) PO SCH (21:17)
[2019-06-30] MEDS: traZODone HCL 50 MG TABLET (FP) PO SCH (21:17)
[2019-06-30] MEDS: MELATONIN 5 MG TABLETS PO PRN (21:18)
[2019-06-30] MEDS: LIDOCAINE PATCH REMOVAL MC SCH (21:18)
[2019-07-01] MEDS ORDERED: PT OWN MED DRAWER 7, Y5N ONE (08:22)
[2019-07-01] MEDS: ASPIRIN COATED 81 MG TABLET.EC PO SCH (10:07)
[2019-07-01] MEDS: PRENATAL VITAMINS W/ FOLIC ACID TABLET (FP) PO SCH (10:07)
[2019-07-01] MEDS: HYDROCHLOROTHIAZIDE 25 MG TABLET (FP) PO SCH (10:07)
[2019-07-01] MEDS: amLODIPine BESYLATE 10 MG TABLET (FP) PO SCH (10:07)
[2019-07-01] MEDS: LIDOCAINE 5% TOPICAL PATCH TP SCH (10:08)
[2019-07-01] MEDS: HYDROCORTISONE 1% TOPICAL CREAM 30 GM TUBE TP SCH ×2 (10:08→21:41)
[2019-07-01] MEDS: AMMONIUM LACTATE 12% LOTION 225 GM BOTTLE TP SCH ×2 (10:08→21:41)
[2019-07-01] MEDS: NICOTINE 14 MG/24 HOURS TOPICAL PATCH TD SCH (10:08)
[2019-07-01] MEDS: BUPRENORPHINE/NALOXONE 4 MG/1 MG FILM PACKET SL SCH ×2 (10:09→18:09)
[2019-07-01] MEDS: IBUPROFEN 400 MG TABLET (FP) PO PRN (21:39)
[2019-07-01] MEDS: THIAMINE HCL 100 MG TABLET (FP) PO SCH (21:40)
[2019-07-01] MEDS: traZODone HCL 50 MG TABLET (FP) PO SCH (21:40)
[2019-07-01] MEDS: MELATONIN 5 MG TABLETS PO PRN (21:40)
[2019-07-01] MEDS: LIDOCAINE PATCH REMOVAL MC SCH (21:41)
[2019-07-02] MEDS ORDERED: PT OWN MED DRAWER 7, Y5N ONE (08:58)
[2019-07-02] MEDS: BUPRENORPHINE/NALOXONE 4 MG/1 MG FILM PACKET SL SCH ×2 (10:17→17:58)
[2019-07-02] MEDS: HYDROCORTISONE 1% TOPICAL CREAM 30 GM TUBE TP SCH ×2 (10:18→21:13)
[2019-07-02] MEDS: AMMONIUM LACTATE 12% LOTION 225 GM BOTTLE TP SCH ×2 (10:18→21:13)
[2019-07-02] MEDS: LIDOCAINE 5% TOPICAL PATCH TP SCH (10:19)
[2019-07-02] MEDS: ASPIRIN COATED 81 MG TABLET.EC PO SCH (10:19)
[2019-07-02] MEDS: PRENATAL VITAMINS W/ FOLIC ACID TABLET (FP) PO SCH (10:19)
[2019-07-02] MEDS: HYDROCHLOROTHIAZIDE 25 MG TABLET (FP) PO SCH (10:20)
[2019-07-02] MEDS: NICOTINE 14 MG/24 HOURS TOPICAL PATCH TD SCH (10:20)
[2019-07-02] MEDS: amLODIPine BESYLATE 10 MG TABLET (FP) PO SCH (10:20)
[2019-07-02] MEDS: traZODone HCL 50 MG TABLET (FP) PO SCH (21:13)
[2019-07-02] MEDS: LIDOCAINE PATCH REMOVAL MC SCH (21:13)
[2019-07-02] MEDS: THIAMINE HCL 100 MG TABLET (FP) PO SCH (21:13)
[2019-07-02] MEDS: MELATONIN 5 MG TABLETS PO PRN (21:13)
[2019-07-03] MEDS ORDERED: PT OWN MED DRAWER 7, Y5N ONE (08:25)
[2019-07-03] MEDS: NICOTINE 14 MG/24 HOURS TOPICAL PATCH TD SCH (09:51)
[2019-07-03] MEDS: BUPRENORPHINE/NALOXONE 4 MG/1 MG FILM PACKET SL SCH ×2 (09:51→19:59)
[2019-07-03] MEDS: amLODIPine BESYLATE 10 MG TABLET (FP) PO SCH (09:52)
[2019-07-03] MEDS: HYDROCORTISONE 1% TOPICAL CREAM 30 GM TUBE TP SCH ×2 (09:52→21:38)
[2019-07-03] MEDS: HYDROCHLOROTHIAZIDE 25 MG TABLET (FP) PO SCH (09:52)
[2019-07-03] MEDS: PRENATAL VITAMINS W/ FOLIC ACID TABLET (FP) PO SCH (09:52)
[2019-07-03] MEDS: ASPIRIN COATED 81 MG TABLET.EC PO SCH (09:52)
[2019-07-03] MEDS: LIDOCAINE 5% TOPICAL PATCH TP SCH (09:53)
[2019-07-03] MEDS: AMMONIUM LACTATE 12% LOTION 225 GM BOTTLE TP SCH ×2 (09:53→21:38)
[2019-07-03] MEDS: THIAMINE HCL 100 MG TABLET (FP) PO SCH (21:35)
[2019-07-03] MEDS: MELATONIN 5 MG TABLETS PO PRN (21:35)
[2019-07-03] MEDS: LIDOCAINE PATCH REMOVAL MC SCH (21:35)
[2019-07-03] MEDS: traZODone HCL 50 MG TABLET (FP) PO SCH (21:36)
[2019-07-03] MEDS: IBUPROFEN 400 MG TABLET (FP) PO PRN (21:37)
[2019-07-04] MEDS: amLODIPine BESYLATE 10 MG TABLET (FP) PO SCH (10:01)
[2019-07-04] MEDS: PRENATAL VITAMINS W/ FOLIC ACID TABLET (FP) PO SCH (10:01)
[2019-07-04] MEDS: ASPIRIN COATED 81 MG TABLET.EC PO SCH (10:01)
[2019-07-04] MEDS: HYDROCHLOROTHIAZIDE 25 MG TABLET (FP) PO SCH (10:01)
[2019-07-04] MEDS: BUPRENORPHINE/NALOXONE 4 MG/1 MG FILM PACKET SL SCH ×2 (10:02→18:04)
[2019-07-04] MEDS: LIDOCAINE 5% TOPICAL PATCH TP SCH (10:02)
[2019-07-04] MEDS: NICOTINE 14 MG/24 HOURS TOPICAL PATCH TD SCH (10:02)
[2019-07-04] MEDS: HYDROCORTISONE 1% TOPICAL CREAM 30 GM TUBE TP SCH ×2 (10:03→21:24)
[2019-07-04] MEDS: AMMONIUM LACTATE 12% LOTION 225 GM BOTTLE TP SCH ×2 (10:03→21:24)
[2019-07-04] MEDS: traZODone HCL 50 MG TABLET (FP) PO SCH (21:21)
[2019-07-04] MEDS: MELATONIN 5 MG TABLETS PO PRN (21:21)
[2019-07-04] MEDS: THIAMINE HCL 100 MG TABLET (FP) PO SCH (21:21)
[2019-07-04] MEDS: IBUPROFEN 400 MG TABLET (FP) PO PRN (21:22)
[2019-07-04] MEDS: LIDOCAINE PATCH REMOVAL MC SCH (21:24)
[2019-07-05] MEDS: PRENATAL VITAMINS W/ FOLIC ACID TABLET (FP) PO SCH (09:59)
[2019-07-05] MEDS: ASPIRIN COATED 81 MG TABLET.EC PO SCH (09:59)
[2019-07-05] MEDS: HYDROCHLOROTHIAZIDE 25 MG TABLET (FP) PO SCH (09:59)
[2019-07-05] MEDS: HYDROCORTISONE 1% TOPICAL CREAM 30 GM TUBE TP SCH ×2 (10:00→21:47)
[2019-07-05] MEDS: NICOTINE 14 MG/24 HOURS TOPICAL PATCH TD SCH (10:00)
[2019-07-05] MEDS: AMMONIUM LACTATE 12% LOTION 225 GM BOTTLE TP SCH ×2 (10:00→21:47)
[2019-07-05] MEDS: amLODIPine BESYLATE 10 MG TABLET (FP) PO SCH (10:00)
[2019-07-05] MEDS: LIDOCAINE 5% TOPICAL PATCH TP SCH (10:00)
[2019-07-05] MEDS: BUPRENORPHINE/NALOXONE 4 MG/1 MG FILM PACKET SL SCH ×2 (10:01→17:44)
[2019-07-05] MEDS ORDERED: PT OWN MED DRAWER 7, Y5N ONE (18:43)
[2019-07-05] MEDS: traZODone HCL 50 MG TABLET (FP) PO SCH (21:44)
[2019-07-05] MEDS: MELATONIN 5 MG TABLETS PO PRN (21:44)
[2019-07-05] MEDS: THIAMINE HCL 100 MG TABLET (FP) PO SCH (21:44)
[2019-07-05] MEDS: IBUPROFEN 400 MG TABLET (FP) PO PRN (21:45)
[2019-07-05] MEDS: LIDOCAINE PATCH REMOVAL MC SCH (21:47)
[2019-07-06] MEDS: LIDOCAINE 5% TOPICAL PATCH TP SCH (09:46)
[2019-07-06] MEDS: NICOTINE 14 MG/24 HOURS TOPICAL PATCH TD SCH (09:46)
[2019-07-06] MEDS: BUPRENORPHINE/NALOXONE 4 MG/1 MG FILM PACKET SL SCH ×2 (09:46→17:17)
[2019-07-06] MEDS: ASPIRIN COATED 81 MG TABLET.EC PO SCH (09:47)
[2019-07-06] MEDS: AMMONIUM LACTATE 12% LOTION 225 GM BOTTLE TP SCH ×2 (09:47→21:20)
[2019-07-06] MEDS: PRENATAL VITAMINS W/ FOLIC ACID TABLET (FP) PO SCH (09:47)
[2019-07-06] MEDS: HYDROCORTISONE 1% TOPICAL CREAM 30 GM TUBE TP SCH ×2 (09:47→21:20)
[2019-07-06] MEDS: amLODIPine BESYLATE 10 MG TABLET (FP) PO SCH (09:47)
[2019-07-06] MEDS: HYDROCHLOROTHIAZIDE 25 MG TABLET (FP) PO SCH (09:47)
[2019-07-06] MEDS: MELATONIN 5 MG TABLETS PO PRN (21:18)
[2019-07-06] MEDS: THIAMINE HCL 100 MG TABLET (FP) PO SCH (21:18)
[2019-07-06] MEDS: traZODone HCL 50 MG TABLET (FP) PO SCH (21:18)
[2019-07-06] MEDS: IBUPROFEN 400 MG TABLET (FP) PO PRN (21:19)
[2019-07-06] MEDS: LIDOCAINE PATCH REMOVAL MC SCH (21:20)
[2019-07-07] MEDS: HYDROCHLOROTHIAZIDE 25 MG TABLET (FP) PO SCH (10:02)
[2019-07-07] MEDS: PRENATAL VITAMINS W/ FOLIC ACID TABLET (FP) PO SCH (10:02)
[2019-07-07] MEDS: NICOTINE 14 MG/24 HOURS TOPICAL PATCH TD SCH (10:02)
[2019-07-07] MEDS: amLODIPine BESYLATE 10 MG TABLET (FP) PO SCH (10:02)
[2019-07-07] MEDS: BUPRENORPHINE/NALOXONE 4 MG/1 MG FILM PACKET SL SCH ×2 (10:03→17:33)
[2019-07-07] MEDS: LIDOCAINE 5% TOPICAL PATCH TP SCH (10:03)
[2019-07-07] MEDS: HYDROCORTISONE 1% TOPICAL CREAM 30 GM TUBE TP SCH ×2 (10:04→21:25)
[2019-07-07] MEDS: AMMONIUM LACTATE 12% LOTION 225 GM BOTTLE TP SCH ×2 (10:04→21:25)
[2019-07-07] MEDS ORDERED: PT OWN MED DRAWER 7, Y5N ONE (10:05)
[2019-07-07] MEDS: ASPIRIN COATED 81 MG TABLET.EC PO SCH (10:05)
--- NOTE | 2019-07-07 12:28 | PN ---
[facility] Progress Note Note: Vital Signs Temperature 98.0 F 07/07/19 06:45 Pulse Rate 91 H 07/07/19 09:23 Respiratory Rate 18 07/07/19 06:45 Blood Pressure 92/62 07/07/19 09:23 O2 Sat by Pulse Oximetry (%) 98 06/16/19 17:56 will hold amlodipine 10 mgs and hydrochlorothiazide 25 mgs no dizziness close monitoring of vitlal sign,bp monitoring
[2019-07-07] MEDS: MELATONIN 5 MG TABLETS PO PRN (21:23)
[2019-07-07] MEDS: THIAMINE HCL 100 MG TABLET (FP) PO SCH (21:23)
[2019-07-07] MEDS: traZODone HCL 50 MG TABLET (FP) PO SCH (21:23)
[2019-07-07] MEDS: IBUPROFEN 400 MG TABLET (FP) PO PRN (21:24)
[2019-07-07] MEDS: LIDOCAINE PATCH REMOVAL MC SCH (21:25)
[2019-07-08] MEDS: HYDROCHLOROTHIAZIDE 25 MG TABLET (FP) PO SCH (09:54)
[2019-07-08] MEDS: LIDOCAINE 5% TOPICAL PATCH TP SCH (09:55)
[2019-07-08] MEDS: NICOTINE 14 MG/24 HOURS TOPICAL PATCH TD SCH (09:55)
[2019-07-08] MEDS: BUPRENORPHINE/NALOXONE 4 MG/1 MG FILM PACKET SL SCH ×2 (09:55→17:00)
[2019-07-08] MEDS: AMMONIUM LACTATE 12% LOTION 225 GM BOTTLE TP SCH ×2 (09:55→21:02)
[2019-07-08] MEDS: PRENATAL VITAMINS W/ FOLIC ACID TABLET (FP) PO SCH (09:55)
[2019-07-08] MEDS: amLODIPine BESYLATE 10 MG TABLET (FP) PO SCH (09:55)
[2019-07-08] MEDS: ASPIRIN COATED 81 MG TABLET.EC PO SCH (10:16)
[2019-07-08] MEDS: HYDROCORTISONE 1% TOPICAL CREAM 30 GM TUBE TP SCH ×2 (10:17→21:03)
[2019-07-08] MEDS: THIAMINE HCL 100 MG TABLET (FP) PO SCH (21:01)
[2019-07-08] MEDS: IBUPROFEN 400 MG TABLET (FP) PO PRN (21:01)
[2019-07-08] MEDS: MELATONIN 5 MG TABLETS PO PRN (21:02)
[2019-07-08] MEDS: traZODone HCL 50 MG TABLET (FP) PO SCH (21:02)
[2019-07-08] MEDS: LIDOCAINE PATCH REMOVAL MC SCH (21:03)
[2019-07-09] MEDS: LIDOCAINE 5% TOPICAL PATCH TP SCH (10:19)
[2019-07-09] MEDS: ASPIRIN COATED 81 MG TABLET.EC PO SCH (10:19)
[2019-07-09] MEDS: BUPRENORPHINE/NALOXONE 4 MG/1 MG FILM PACKET SL SCH ×2 (10:19→17:31)
[2019-07-09] MEDS: PRENATAL VITAMINS W/ FOLIC ACID TABLET (FP) PO SCH (10:19)
[2019-07-09] MEDS: HYDROCORTISONE 1% TOPICAL CREAM 30 GM TUBE TP SCH ×2 (10:19→21:38)
[2019-07-09] MEDS: HYDROCHLOROTHIAZIDE 25 MG TABLET (FP) PO SCH (10:19)
[2019-07-09] MEDS: amLODIPine BESYLATE 10 MG TABLET (FP) PO SCH (10:19)
[2019-07-09] MEDS: NICOTINE 14 MG/24 HOURS TOPICAL PATCH TD SCH (10:20)
[2019-07-09] MEDS: AMMONIUM LACTATE 12% LOTION 225 GM BOTTLE TP SCH ×2 (10:20→21:38)
[2019-07-09] MEDS ORDERED: PT OWN MED DRAWER 7, Y5N ONE ×2 (19:36→21:39)
[2019-07-09] MEDS: traZODone HCL 50 MG TABLET (FP) PO SCH (21:37)
[2019-07-09] MEDS: THIAMINE HCL 100 MG TABLET (FP) PO SCH (21:37)
[2019-07-09] MEDS: LIDOCAINE PATCH REMOVAL MC SCH (21:38)
[2019-07-09] MEDS: IBUPROFEN 400 MG TABLET (FP) PO PRN (21:39)
[2019-07-09] MEDS: MELATONIN 5 MG TABLETS PO PRN (21:40)
[2019-07-10] MEDS: AMMONIUM LACTATE 12% LOTION 225 GM BOTTLE TP SCH ×2 (09:54→21:11)
[2019-07-10] MEDS: LIDOCAINE 5% TOPICAL PATCH TP SCH (09:54)
[2019-07-10] MEDS: BUPRENORPHINE/NALOXONE 4 MG/1 MG FILM PACKET SL SCH ×2 (09:54→17:46)
[2019-07-10] MEDS: ASPIRIN COATED 81 MG TABLET.EC PO SCH (09:54)
[2019-07-10] MEDS: NICOTINE 14 MG/24 HOURS TOPICAL PATCH TD SCH (09:54)
[2019-07-10] MEDS: PRENATAL VITAMINS W/ FOLIC ACID TABLET (FP) PO SCH (09:54)
[2019-07-10] MEDS: HYDROCORTISONE 1% TOPICAL CREAM 30 GM TUBE TP SCH ×2 (09:56→21:11)
[2019-07-10] MEDS: amLODIPine BESYLATE 10 MG TABLET (FP) PO SCH (09:56)
[2019-07-10] MEDS: HYDROCHLOROTHIAZIDE 25 MG TABLET (FP) PO SCH (09:56)
[2019-07-10] MEDS: THIAMINE HCL 100 MG TABLET (FP) PO SCH (21:10)
[2019-07-10] MEDS: traZODone HCL 50 MG TABLET (FP) PO SCH (21:10)
[2019-07-10] MEDS: IBUPROFEN 400 MG TABLET (FP) PO PRN (21:10)
[2019-07-10] MEDS: MELATONIN 5 MG TABLETS PO PRN (21:11)
[2019-07-10] MEDS: LIDOCAINE PATCH REMOVAL MC SCH (21:11)
[2019-07-11] MEDS: ASPIRIN COATED 81 MG TABLET.EC PO SCH (09:47)
[2019-07-11] MEDS: HYDROCHLOROTHIAZIDE 25 MG TABLET (FP) PO SCH (09:47)
[2019-07-11] MEDS: amLODIPine BESYLATE 10 MG TABLET (FP) PO SCH (09:47)
[2019-07-11] MEDS: PRENATAL VITAMINS W/ FOLIC ACID TABLET (FP) PO SCH (09:47)
[2019-07-11] MEDS: LIDOCAINE 5% TOPICAL PATCH TP SCH (09:48)
[2019-07-11] MEDS: BUPRENORPHINE/NALOXONE 4 MG/1 MG FILM PACKET SL SCH ×2 (09:48→17:48)
[2019-07-11] MEDS: HYDROCORTISONE 1% TOPICAL CREAM 30 GM TUBE TP SCH ×2 (09:48→21:11)
[2019-07-11] MEDS: NICOTINE 14 MG/24 HOURS TOPICAL PATCH TD SCH (09:49)
[2019-07-11] MEDS: AMMONIUM LACTATE 12% LOTION 225 GM BOTTLE TP SCH ×2 (09:49→21:10)
--- NOTE | 2019-07-11 14:14 | DS ---
[facility] Rehab Discharge Summary - [facility] Rehab Discharge Summary Admission Date: 06/16/19 Discharge Date: 07/12/19 - History Present History: Cocaine dependence, Opioid dependence Additional Comments: Pt is a 63 y/o female with a hx of JAIRON admitted to rehab and scheduled for discharge on 07/12/19. Pt has been referred to follow up with CD aftercare at [facility]. Pt reports she will follow up with [facility] for primary Care because it is closer to her residence than current pCP, Dr. Riley at [place], [place]. Pertinent Past History: Asthma HTN Osteoarthritis Obesity - Discharge Physical Exam Vital Signs: Vital Signs Temperature 97.4 F L 07/11/19 06:47 Pulse Rate 80 07/11/19 09:25 Respiratory Rate 18 07/11/19 09:25 Blood Pressure 117/76 07/11/19 09:25 O2 Sat by Pulse Oximetry (%) 98 06/16/19 17:56 Alert o x 3,denies s/h/i nad oob ambulates with wheel chair/walker cardiac:s1 s2,rrr lungs:cta,marybeth. abdomen:=bs,soft,+++fatty,nd extremities/skin: skin intact;chronic bilateral LE mild edema/pain. Pertinent Admission Physical Exam Findings: Laboratory Tests 06/17/19 06/17/19 10:20 10:20 Opiates Screen Negative Methadone Screen Positive A* Barbiturate Screen Negative Phencyclidine Screen Negative Ur Amphetamines Screen Negative MDMA (Ecstasy) Screen Positive A* MDMA & Metabolite Negative Benzodiazepines Screen Negative Cocaine Screen Negative U Marijuana (THC) Screen Negative - Treatment Discharge Condition: Discharge condition good - Medication Discharge Medications: Ambulatory Orders Bupropion HCl [Wellbutrin -] 150 mg PO DAILY 02/06/19 Hydrochlorothiazide 50 mg PO DAILY 02/06/19 Naproxen [Naprosyn] 500 mg PO DAILY PRN 06/11/19 Trazodone HCl 50 mg PO HS 06/11/19 Amlodipine Besylate [Norvasc -] 10 mg PO DAILY #30 tablet 07/11/19 Aspirin Coated [Ecotrin -] 81 mg PO DAILY #15 tablet.ec 07/11/19 Buprenorphine HCl/Naloxone HCl [Suboxone 4 mg-1 mg Sl Film] 1 each SL BID 7 Days #14 film MDD 2 07/11/19 Hydrochlorothiazide [Hctz -] 25 mg PO DAILY #30 tablet 07/11/19 Bupropion HCl [Wellbutrin Xl -] 150 mg PO DAILY #30 tab.sr.24h 07/12/19 Trazodone HCl 150 mg PO HS #30 tablet 07/12/19 - Medication-Assisted Treatment (MAT) Medication-Assisted Treatment (MAT): Yes Medication Prescribed: Suboxone - Discharge Instructions Diet, activity, other medical instructions: Diet:OSCAR Activity: oob ad emeka with walker Other medical instructions:follow up with CD aftercare recommendation as schedule. follow up with primary care provider for medical management within 1-2 weeks after discharge. - Diagnosis (1) Cocaine dependence Status: Chronic Qualifiers: Substance use status: uncomplicated Qualified Code(s): F14.20 - Cocaine dep endence, uncomplicated (2) Opioid dependence Status: Chronic Qualifiers: Substance use status: uncomplicated Qualified Code(s): F11.20 - Opioid dependence, uncomplicated (3) Nicotine dependence Status: Chronic Qualifiers: Nicotine product type: cigarettes Substance use status: uncomplicated Qualified Code(s): F17.210 - Nicotine dependence, cigarettes, uncomplicated (4) Essential (primary) hypertension Status: Chronic (5) History of asthma Status: Chronic (6) History of depression Status: Chronic (7) History of low back pain Status: Chronic (8) History of osteoarthritis Status: Chronic (9) Obesity (BMI 30-39.9) Status: Chronic (10) Walker as ambulation aid Status: Chronic - Follow-up Referral Minutes to complete discharge: 30 - AMA Did Patient Leave Against Medical Advice: No Additional Comments: Suboxone 4mg/1mg sl BID #14 electronically sent to [facility] for pt black pickler after discharge. Pt will follow up with [facility] to continue Suboxone MAT. Pt's other medications Amlodipine 10 mg po daily #30, Aspirin 81 mg po daily $15 and Hydrochlorothiazide 25 mg po daily #30 sent to pharmacy as well.
[2019-07-11] MEDS: IBUPROFEN 400 MG TABLET (FP) PO PRN (21:09)
[2019-07-11] MEDS: THIAMINE HCL 100 MG TABLET (FP) PO SCH (21:09)
[2019-07-11] MEDS: LIDOCAINE PATCH REMOVAL MC SCH (21:10)
[2019-07-11] MEDS: traZODone HCL 50 MG TABLET (FP) PO SCH (21:10)
[2019-07-11] MEDS: MELATONIN 5 MG TABLETS PO PRN (21:10)
--- NOTE | 2019-07-12 07:21 | PN ---
[facility] Progress Note Note: Patient is scheduled for discharge today. Scripts for 30 days supply of medications(Wellbutrin XL 150 mg/day and Trazadone 150 mg/hs) are electronically transmitted to [facility] at [address] [place], [place] [id number]
[2019-07-12 07:35] VITALS: BP 117/77; PULSE 74; TEMP 97.8
[2019-07-12] MEDS ORDERED: PT OWN MED DRAWER 7, Y5N ONE (08:33)
[2019-07-12] MEDS: LIDOCAINE 5% TOPICAL PATCH TP SCH (09:30)
[2019-07-12] MEDS: PRENATAL VITAMINS W/ FOLIC ACID TABLET (FP) PO SCH (09:31)
[2019-07-12] MEDS: HYDROCHLOROTHIAZIDE 25 MG TABLET (FP) PO SCH (09:31)
[2019-07-12] MEDS: amLODIPine BESYLATE 10 MG TABLET (FP) PO SCH (09:31)
[2019-07-12] MEDS: ASPIRIN COATED 81 MG TABLET.EC PO SCH (09:31)
[2019-07-12] MEDS: NICOTINE 14 MG/24 HOURS TOPICAL PATCH TD SCH (09:34)
[2019-07-12] MEDS: AMMONIUM LACTATE 12% LOTION 225 GM BOTTLE TP SCH (09:35)
[2019-07-12] MEDS: BUPRENORPHINE/NALOXONE 4 MG/1 MG FILM PACKET SL SCH (09:35)
[2019-07-12] MEDS: HYDROCORTISONE 1% TOPICAL CREAM 30 GM TUBE TP SCH (09:35)
--- NOTE | 2019-07-12 12:12 | PN ---
[facility] Progress Note Note: Pt was discharged today as scheduled. Vital Signs - 24 hr 07/12/19 07/12/19 03:38 06:38 Temperature 97.8 F Pulse Rate 74 Respiratory 18 18 Rate Blood Pressure 117/77 Alert o x 3 nad oob ambulating around unit in wheelchair A/P Medically stable D/C today To follow up with primary care and CDaftercare as recommended.
== END 2019-07-12 10:40 | disposition home or self-care (01) | DRG 772 ==
LOC: YASAS 09:08 → Y3E 09:09
PROVIDERS: ADMIT Allergy & Immunology; ATTEND Allergy & Immunology
PROC: HZ42ZZZ Group Counseling for Substance Abuse Treatment, Cognitive-Behavioral (ICD-10-PCS; principal; 2019-06-16)
DX: F11.20 Opioid dependence, uncomplicated (principal); F14.20 Cocaine dependence, uncomplicated; F17.210 Nicotine dependence, cigarettes, uncomplicated; F19.282 Other psychoactive substance dependence with psychoactive substance-induced sleep disorder; F19.24 Other psychoactive substance dependence with psychoactive substance-induced mood disorder; F32.9 Major depressive disorder, single episode, unspecified; B18.2 Chronic viral hepatitis C; I10 Essential (primary) hypertension; J45.998 Other asthma; M19.90 Unspecified osteoarthritis, unspecified site; M54.5 Low back pain; G89.29 Other chronic pain; L74.0 Miliaria rubra; R76.11 Nonspecific reaction to tuberculin skin test without active tuberculosis; E66.9 Obesity, unspecified; Z68.38 Body mass index [BMI] 38.0-38.9, adult; Z96.643 Presence of artificial hip joint, bilateral; Z99.89 Dependence on other enabling machines and devices; Z62.810 Personal history of physical and sexual abuse in childhood; Z91.410 Personal history of adult physical and sexual abuse
CPT/HCPCS: 36415; 80307; G0480; G6053

== ENCOUNTER 2023-10-26 11:29 | Inpatient (IN) | payer OTHER ==
[2023-10-26 12:48] VITALS: BMI 36.3
[2023-10-26] MEDS ORDERED: BENZOCAINE/MENTHOL (CHLORASEPTIC ) LOZENGE MM PRN (12:56)
[2023-10-26] MEDS ORDERED: METHOCARBAMOL 500 MG TABLET PO PRN (12:56)
[2023-10-26] MEDS ORDERED: MAG HYDROX/AL HYDROX/SIMETH 30 ML UNIT-DOSE CUP PO PRN (12:56)
[2023-10-26] MEDS ORDERED: IBUPROFEN 600 MG TABLET (FP) PO PRN (12:56)
[2023-10-26] MEDS ORDERED: NALOXONE (NARCAN) HCL 4 MG/0.1 ML SPRAY NS PRN (12:56)
[2023-10-26] MEDS ORDERED: ONDANSETRON *ODT* 4 MG TABLET SL PRN (12:56)
[2023-10-26] MEDS ORDERED: BENZONATATE 200 MG CAPSULE PO PRN (12:56)
[2023-10-26] MEDS ORDERED: IBUPROFEN 400 MG TABLET (FP) PO PRN (12:56)
[2023-10-26] MEDS ORDERED: NALOXONE HCL 0.4 MG/ML VIAL IM PRN (12:56)
[2023-10-26] MEDS ORDERED: methaDONE HCL 10 MG TABLET (FOR DETOX USE ONLY) PO ONE (12:56)
[2023-10-26] MEDS ORDERED: BISMUTH SUBSALICYLATE 524 MG/30 ML PO PRN (12:56)
[2023-10-26] MEDS ORDERED: hydrOXYzine PAMOATE 25 MG CAPSULE (FP) PO PRN (12:56)
[2023-10-26] MEDS ORDERED: DICYCLOMINE HCL 10 MG CAPSULE PO PRN (12:56)
[2023-10-26] MEDS ORDERED: guaiFENesin 600 MG TABLET.ER (FP) PO PRN (12:56)
[2023-10-26] MEDS ORDERED: POLYETHYLENE GLYCOL (HEALTHYLAX) 3350 17 GM PACKET PO PRN (12:56)
[2023-10-26] MEDS ORDERED: LOPERAMIDE HCL 2 MG CAPSULE PO PRN (12:56)
[2023-10-26] MEDS ORDERED: MAGNESIUM HYDROX 2400MG/30ML ORAL SUSPENSION 30 ML CUP PO PRN (12:56)
[2023-10-26] MEDS ORDERED: methaDONE HCL 10 MG TABLET (FOR DETOX USE ONLY) ONE (13:58)
[2023-10-26] MEDS ORDERED: ASPIRIN 81 MG CHEWABLE TABLETS ONE (13:59)
[2023-10-26] MEDS ORDERED: BUPRENORPHINE/NALOXONE 0.5 MG/0.125 MG FILM ONE (13:59)
[2023-10-26] MEDS ORDERED: PRENATAL VITAMINS W/ FOLIC ACID TABLET (FP) PO ONE (13:59)
[2023-10-26] MEDS ORDERED: amLODIPine BESYLATE 5 MG TABLET (FP) ONE (13:59)
[2023-10-26] MEDS: BUPRENORPHINE/NALOXONE 0.5 MG/0.125 MG FILM SL ONE ×2 (14:05→22:44)
[2023-10-26] MEDS: PRENATAL VITAMINS W/ FOLIC ACID TABLET (FP) PO SCH (14:05)
[2023-10-26] MEDS: ASPIRIN COATED 81 MG TABLET.EC PO SCH (14:06)
[2023-10-26] MEDS: methaDONE HCL 10 MG TABLET (FOR DETOX USE ONLY) PO ONE (14:06)
[2023-10-26] MEDS: NICOTINE 14 MG/24 HOURS TOPICAL PATCH TD SCH (14:06)
[2023-10-26] MEDS: amLODIPine BESYLATE 10 MG TABLET (FP) PO SCH (14:06)
[2023-10-26] MEDS: levETIRAcetam 500 MG TABLET (FP) PO SCH (14:24)
[2023-10-26] MEDS: cloNIDine HCL 0.1 MG TABLET PO SCH (14:49)
[2023-10-26] MEDS: ACETAMINOPHEN 325 MG TABLET (FP) PO PRN (15:20)
[2023-10-26] MEDS: ALBUTEROL SO4 HFA INHALER IH PRN (18:36)
[2023-10-26] MEDS: NAPROXEN 500 MG TABLET PO SCH (22:43)
[2023-10-26] MEDS: MELATONIN 5 MG TABLETS PO SCH (22:43)
[2023-10-26] MEDS: THIAMINE 100 MG TABLET PO SCH (22:43)
[2023-10-26] MEDS: traZODone HCL 50 MG TABLET (FP) PO SCH (22:43)
[2023-10-27] MEDS: CYCLOBENZAPRINE HCL 10 MG TABLET (FP) PO PRN (05:59)
[2023-10-27] MEDS ORDERED: HYDROCHLOROTHIAZIDE 25 MG TABLET (FP) PO SCH (10:00)
[2023-10-27] MEDS: FUROSEMIDE 40 MG TABLET (FP) PO SCH (10:29)
[2023-10-27] MEDS: SENNOSIDES 8.6MG TABLET (FP) PO SCH (10:29)
[2023-10-27] MEDS: HYDROCHLOROTHIAZIDE 25 MG TABLET (FP) PO SCH (10:31)
[2023-10-27] MEDS: BUPRENORPHINE/NALOXONE 0.5 MG/0.125 MG FILM SL SCH (10:34)
[2023-10-27] MEDS: ATORVASTATIN CA 40 MG TABLET (FP) PO SCH (22:21)
[2023-10-28] MEDS: BUPRENORPHINE/NALOXONE 2 MG/0.5 MG FILM PACKET SL SCH (09:59)
[2023-10-28] MEDS: methaDONE HCL 10 MG TABLET (FOR DETOX USE ONLY) PO ONE (10:00)
[2023-10-29] MEDS: BUPRENORPHINE/NALOXONE 4 MG/1 MG FILM PACKET SL SCH (09:26)
[2023-10-30] MEDS: methaDONE HCL 10 MG TABLET (FOR DETOX USE ONLY) PO ONE (10:17)
[2023-10-30] MEDS: BUPRENORPHINE/NALOXONE 8 MG/2 MG FILM PACKET SL SCH (10:19)
[2023-10-31 09:32] VITALS: BP 101/60; PULSE 84; RESP 18; TEMP 98.7
[2023-10-31] MEDS: BUPRENORPHINE/NALOXONE 8 MG/2 MG FILM PACKET SL SCH (09:34)
== END 2023-10-31 11:10 | disposition home or self-care (01) | DRG 897 ==
LOC: YASAS 11:29 → Y3N 13:12
PROVIDERS: ADMIT Allergy & Immunology; ATTEND Surgery
PROC: HZ2ZZZZ Detoxification Services for Substance Abuse Treatment (ICD-10-PCS; principal; 2023-10-26)
DX: F11.23 Opioid dependence with withdrawal (principal); F14.20 Cocaine dependence, uncomplicated; F19.282 Other psychoactive substance dependence with psychoactive substance-induced sleep disorder; F32.9 Major depressive disorder, single episode, unspecified; I10 Essential (primary) hypertension; J45.909 Unspecified asthma, uncomplicated; Z62.810 Personal history of physical and sexual abuse in childhood; Z91.410 Personal history of adult physical and sexual abuse; Z63.8 Other specified problems related to primary support group; Z63.0 Problems in relationship with spouse or partner
CPT/HCPCS: 80305; 93005; 93010